=== PATIENT | female | born 1955 | race Caucasian/White ===

== ENCOUNTER 2020-09-18 13:12 | Outpatient (REF) | payer OTHER, SELFPAY | END 2020-09-18 13:13 | disposition home or self-care (01) | LOC: HO.LAB 13:12 | PROVIDERS: PCP Family Medicine; Visit Provider Internal Medicine | DX: Z20.828 Contact with and (suspected) exposure to other viral communicable diseases (principal) | CPT/HCPCS: 87635; C9803 ==

== ENCOUNTER 2020-09-19 10:59 | Outpatient (REF) | payer OTHER, SELFPAY ==
[2020-09-19 11:31] LABS: COVID-19 Test Negative (Negative)
== END 2020-09-19 11:00 | disposition home or self-care (01) ==
LOC: HO.EMPCOV 10:59
PROVIDERS: Visit Provider Internal Medicine
DX: Z20.828 Contact with and (suspected) exposure to other viral communicable diseases (principal)
CPT/HCPCS: 87635; C9803

== ENCOUNTER 2020-09-26 14:15 | Outpatient (REF) | payer OTHER, SELFPAY ==
--- NOTE | 2020-09-26 | MM_ITS ---
EXAMINATION: MM SCREENING DIGITAL BREAST TOMOSYNTHESIS, BILATERAL CLINICAL INFORMATION: Screening. Asymptomatic. The lifetime risk of breast cancer based on the Tyrer-Cuzick Model is 8%. COMPARISON: Mammography: 07/21/2018, 07/01/2017 TECHNIQUE: Digital breast tomosynthesis is performed in both the craniocaudal and mediolateral oblique views along with computer-aided detection (CAD). Synthesized 2D images are generated from the tomosynthesis. FINDINGS: The breasts are extremely dense, which lowers the sensitivity of mammography (ACR BI-RADS breast composition Category d). Breast tissue composition borders on heterogeneously dense. The left breast shows no interval mass or architectural abnormality. There are no abnormal calcifications in either breast. The axilla and skin contours are unremarkable. The right MLO tomography shows increased parenchymal attenuation upper quadrant 4 cm from nipple without correlate on CC view. This may be related to incompletely compressed glandular tissue and/or summation artifact. Patient will be recalled to fully characterize. MM/MM tomosynthesis screening BI IMPRESSION: 1. Right: Asymmetric density upper right breast on MLO tomography, possibly incompletely compressed glandular tissue and/or summation artifact. 2.Left: No mammographic evidence of malignancy. ASSESSMENT: BI-RADS 0: Incomplete - Need Additional Imaging Evaluation RECOMMENDATION: 1. Additional views of the right breast (3-D spot MLO, 3-D ML). 2. Targeted ultrasound if warranted after review of the additional views. 3. Radiology department staff will contact the patient for additional imaging. This patient's information was entered into a reminder system with a target due date for their next mammogram.
== END 2020-09-26 14:16 | disposition home or self-care (01) ==
LOC: HO.MAMMO 14:15
PROVIDERS: Visit Provider Family Medicine
DX: Z12.31 Encounter for screening mammogram for malignant neoplasm of breast (principal)
CPT/HCPCS: 77063; 77067

== ENCOUNTER 2020-10-11 13:45 | Outpatient (REF) | payer OTHER, SELFPAY ==
[2020-10-11 14:11] LABS: COVID-19 Test Negative (Negative); IDNOW Serial# 55D5AD1C
== END 2020-10-11 13:46 | disposition home or self-care (01) ==
LOC: HO.LAB 13:45
PROVIDERS: Visit Provider Internal Medicine
DX: Z20.828 Contact with and (suspected) exposure to other viral communicable diseases (principal)
CPT/HCPCS: 87635; C9803

== ENCOUNTER 2020-10-16 13:31 | Outpatient (REF) | payer OTHER, SELFPAY ==
[2020-10-16 14:16] LABS: COVID-19 Test Negative (Negative); IDNOW Serial# 55D5AD1C
== END 2020-10-16 13:32 | disposition home or self-care (01) ==
LOC: HO.EMPCOV 13:31
PROVIDERS: Visit Provider Internal Medicine
DX: Z20.828 Contact with and (suspected) exposure to other viral communicable diseases (principal)
CPT/HCPCS: 87635; C9803

== ENCOUNTER 2020-10-17 14:49 | Outpatient (REF) | payer OTHER, SELFPAY ==
--- NOTE | 2020-10-17 14:55 | MM_ITS ---
EXAMINATION: MM DIAGNOSTIC DIGITAL BREAST TOMOSYNTHESIS, RIGHT CLINICAL INFORMATION: Recall from screening for increased parenchymal attenuation upper breast without CC correlate, possibly summation artifact or incompletely compressed glandular tissue. COMPARISON: Mammography: 09/26/2020, 07/21/2018, 07/01/2017 TECHNIQUE: Digital breast tomosynthesis is performed. 2D images are generated from the tomosynthesis. The following views are obtained: 3-D spot MLO, 3-D ML. FINDINGS: The breasts are extremely dense, which lowers the sensitivity of mammography (ACR BI-RADS breast composition Category d). The additional views show no focal increased parenchymal density, mass, or architectural abnormality. Parenchymal pattern appears similar to prior studies. Results are discussed with the patient at time of visit. MM/MM tomosynthesis added views R IMPRESSION: Additional views show no persistent increased parenchymal attenuation. ASSESSMENT: BI-RADS 2: Benign RECOMMENDATION: Routine annual mammography screening. This patient's information was entered into a reminder system with a target due date for their next mammogram.
== END 2020-10-17 14:50 | disposition home or self-care (01) ==
LOC: HO.MAMMO 14:49
PROVIDERS: PCP Family Medicine; Visit Provider Nurse Practitioner Adult Health
DX: R92.2 Inconclusive mammogram (principal)
CPT/HCPCS: 77061; 77065

== ENCOUNTER 2020-11-03 13:51 | Outpatient (REF) | payer OTHER, SELFPAY ==
[2020-11-03 14:13] LABS: COVID-19 Test Negative (Negative)
== END 2020-11-03 13:52 | disposition home or self-care (01) ==
LOC: HO.EMPCOV 13:51
PROVIDERS: Visit Provider Internal Medicine
DX: Z20.822 Contact with and (suspected) exposure to COVID-19 (principal)
CPT/HCPCS: 36415; 87635; C9803

== ENCOUNTER 2020-12-14 13:20 | Outpatient (REF) | payer OTHER, SELFPAY ==
[2020-12-14 13:41] LABS: COVID-19 Test Negative (Negative)
== END 2020-12-14 13:21 | disposition home or self-care (01) ==
LOC: HO.EMPCOV 13:20
PROVIDERS: Visit Provider Internal Medicine
DX: Z20.822 Contact with and (suspected) exposure to COVID-19 (principal)
CPT/HCPCS: 36415; 87635; C9803

== ENCOUNTER 2021-05-01 08:05 | Outpatient (REF) | payer OTHER, SELFPAY ==
--- NOTE | ~2021-05-01 | XR_ITS ---
EXAMINATION: XR KNEE, RIGHT XR KNEE, LEFT CLINICAL INFORMATION: Pain in the right knee COMPARISON: X-ray of the right and left knee February 2018 TECHNIQUE: AP upright of the right and left knee. Patella and lateral view of the right knee FINDINGS: Right Knee: Medial Compartment: Joint space narrowing with marginal osteophytes indicative of moderate osteoarthritis. Lateral Compartment: Slightly widened likely related to the narrowed medial compartment. Marginal osteophytes indicative of at least mild arthrosis. Patellofemoral Compartment: Unremarkable. No effusion. Surrounding bone and soft tissues unremarkable. Left Knee (limited AP upright): Medial and lateral compartments and surrounding bone and soft tissues are normal. XR/XR knee RT 2V IMPRESSION: Right Knee: Osteoarthritis with degenerative changes most prominent in the medial compartment being moderate and new compared to prior x-ray in 2018. Left Knee Limited Exam: Normal.
--- NOTE | ~2021-05-01 | XR_ITS ---
EXAMINATION: XR KNEE, RIGHT XR KNEE, LEFT CLINICAL INFORMATION: Pain in the right knee COMPARISON: X-ray of the right and left knee February 2018 TECHNIQUE: AP upright of the right and left knee. Patella and lateral view of the right knee FINDINGS: Right Knee: Medial Compartment: Joint space narrowing with marginal osteophytes indicative of moderate osteoarthritis. Lateral Compartment: Slightly widened likely related to the narrowed medial compartment. Marginal osteophytes indicative of at least mild arthrosis. Patellofemoral Compartment: Unremarkable. No effusion. Surrounding bone and soft tissues unremarkable. Left Knee (limited AP upright): Medial and lateral compartments and surrounding bone and soft tissues are normal. XR/XR knee standing BI IMPRESSION: Right Knee: Osteoarthritis with degenerative changes most prominent in the medial compartment being moderate and new compared to prior x-ray in 2018. Left Knee Limited Exam: Normal.
== END 2021-05-01 08:06 | disposition home or self-care (01) ==
LOC: HO.HOSX 08:05
PROVIDERS: Visit Provider Orthopaedic Surgery
DX: M17.11 Unilateral primary osteoarthritis, right knee (principal)
CPT/HCPCS: 73560; 73565; 99202

== ENCOUNTER 2022-09-26 14:40 | Outpatient (REF) | payer OTHER, SELFPAY ==
--- NOTE | ~2022-09-26 | MM_ITS ---
EXAMINATION: MM SCREENING DIGITAL BREAST TOMOSYNTHESIS, BILATERAL CLINICAL INFORMATION: Screening. Asymptomatic. The lifetime risk of breast cancer based on the Tyrer-Cuzick Model is 7.5%. COMPARISON: Mammography: October 17, 2020 and studies dating back to April 09, 2016 TECHNIQUE: Digital breast tomosynthesis is performed in both the craniocaudal and mediolateral oblique views along with computer-aided detection (CAD). Synthesized 2D images are generated from the tomosynthesis. FINDINGS: The breasts are extremely dense, which lowers the sensitivity of mammography (ACR BI-RADS breast composition Category d). There are no significant masses, abnormal calcifications, or other abnormalities. MM/MM tomosynthesis screening BI IMPRESSION: No significant changes from prior exam. ASSESSMENT: BI-RADS 1: Negative RECOMMENDATION: Routine annual mammography screening. This patient's information was entered into a reminder system with a target due date for their next mammogram.
--- NOTE | ~2022-09-26 | MM_ITS ---
EXAMINATION: BONE DENSITOMETRY CLINICAL INDICATION: Menopause. COMPARISON: Previous BD dated 04/09/2016 and baseline BD dated 07/08/2013. TECHNIQUE: Using a miCab DXA System (software version: 13.1) manufactured by [employer], dual-energy x-ray absorptiometry was performed of the lumbar spine and left hip. The images are of good technical quality. Summary results are attached. FINDINGS: AP SPINE L1-L4: Current: BMD 0.816 g/cm2, Z-score -1.0, T-score -3.0, osteoporosis, 0.2% decrease from previous, 7.6% decrease from baseline (<5% change is not significant). Prior: BMD 0.818 g/cm2. Baseline: BMD 0.883 g/cm2. LEFT FEMUR, NECK: Current: BMD 0.885 g/cm2, Z-score 0.7, T-score -1.1, osteopenia. Prior: BMD 0.951 g/cm2. Baseline: BMD 0.969 g/cm2. LEFT FEMUR, TOTAL: Current: BMD 0.929 g/cm2, Z-score 0.9, T-score -0.6, normal, 1.2% decrease from previous, 4.8% decrease from baseline (<5% change is not significant). Prior: BMD 0.940 g/cm2. Baseline: BMD 0.976 g/cm2. IDENTIFIED RISK FACTORS: Height loss, osteoporosis, menopause. HISTORY OF FRACTURE: Foot. MEDICATIONS: Calcium supplements or multivitamin, vitamin D. MM/XR DEXA axial skeleton IMPRESSION: 1. DIAGNOSIS: Osteoporosis based on the lowest T-score value of -3.0 in the lumbar spine applying World Health Organization criteria. 2. 10-YEAR FRACTURE RISK PREDICTION, FRAX: According to the guidelines, FRAX calculation should only be performed on patients in the osteopenia bone density category. Therefore, FRAX was not performed on this patient. 3. Treatment Recommendations: NOF guidelines recommend consideration for treatment in postmenopausal women and men age 50 and older presenting with the following: -A hip or vertebral (clinical or morphometric) fracture. -T-score less than or equal to -2.5 at the femoral neck or spine after appropriate evaluation to exclude secondary causes. -Low bone mass at the hip or spine and a 10-year fracture probability by FRAX of greater than or equal to 3% for hip fracture or greater than or equal to 20% for major osteoporotic fracture based on the [place] adapted WHO algorithm. 4. Other Recommendations: All treatment decisions require clinical judgment and consideration of individual patient factors, including patient preferences, comorbidities, previous drug use, risk factors not captured in the FRAX model (e.g. frailty, falls, vitamin D deficiency, increased bone turnover, interval significant decline in bone density) and possible under or overestimation of fracture risk by FRAX. Additional medical evaluation for secondary cause of low bone mineral density may be appropriate. FUTURE SCAN RECOMMENDATION: People with diagnosed cases of osteoporosis or at high risk for fracture should have regular bone mineral density tests. For patients eligible for Medicare, routine testing is allowed once every 2 years. The testing frequency can be increased to one year for patients who have rapidly progressing disease, those who are receiving or discontinuing medical therapy to restore bone mass, or have additional risk factors.
== END 2022-09-26 14:41 | disposition home or self-care (01) ==
LOC: HO.MAMMO 14:40
PROVIDERS: PCP Internal Medicine; Visit Provider Nurse Practitioner Adult Health
DX: Z12.31 Encounter for screening mammogram for malignant neoplasm of breast (principal); Z13.820 Encounter for screening for osteoporosis; N95.1 Menopausal and female climacteric states
CPT/HCPCS: 77063; 77067; 77080

== ENCOUNTER 2022-10-29 09:36 | Outpatient (REF) | payer OTHER, SELFPAY ==
[2022-10-29 13:45] LABS: MANUAL DIFF FLAG NO
[2022-10-29 13:53] LABS: Basophils Absolute Auto 0.1 X10*3/uL (0.0-0.2); Basophils Percent Auto 1.3 % (0-2); Eosinophils Absolute Auto 0.3 X10*3/uL (0.0-0.4); Eosinophils Percent Auto 6.9 % (0-4); Hematocrit 42.1 % (37.0-47.0); Imm Gran Abs Auto 0.01 X10*3/uL (0.00-0.03); Imm Gran Pct Auto 0.2 % (0.0-0.4); Lymphocytes Percent Auto 42.6 % (20-40); Mean Corpuscular HGB Conc 33.3 g/dl (31.0-35.0); Mean Corpuscular Hemoglobin 31.5 pg (27.0-33.0); Mean Corpuscular Volume 94.6 fL (80.0-98.0); Mean Platelet Volume 10.1 fL (9.4-12.3); Monocytes Absolute Auto 0.5 X10*3/uL (0.1-1.2); Monocytes Percent Auto 9.7 % (2-11); Neutrophils Absolute Auto 1.8 x10*3/uL (2.0-8.3); Neutrophils Percent Auto 39.3 % (45-73); Platelet Count 336 X10*3/uL (160-400); Red Blood Count 4.45 X10*6/uL (4.20-5.50); Red Cell Distribution Width 11.8 % (11.0-16.0); White Blood Count 4.7 X10*3/uL (4.8-10.8)
[2022-10-29 14:08] LABS: Alanine Aminotransferase 15 U/L (0-31); Albumin Level 4.2 g/dL (3.5-5.0); Alkaline Phosphatase 56 U/L (39-117); Anion Gap 11 (12-20); Aspartate Amino Transferase 17 U/L (5-31); Bilirubin Total 0.4 mg/dL (0.0-1.0); Blood Urea Nitrogen 13 mg/dL (9-16); Calcium 9.1 mg/dL (8.4-10.2); Carbon Dioxide 27 mmol/L (22-29); Chloride 107 mmol/L (96-108); Cholesterol 309 mg/dL; Estimated Glomerular Filt Rate > 60; Glucose Fasting 83 mg/dL (60-99); HDL Cholesterol 83 mg/dL; LDL Cholesterol Calculated 211 mg/dl; Potassium 4.6 mmol/L (3.3-5.1); Sodium 140 mmol/L (135-145); Total Protein 6.7 g/dL (6.5-8.0); Triglycerides 75 mg/dL
== END 2022-10-29 09:37 | disposition home or self-care (01) ==
LOC: HO.10HDL 09:36
PROVIDERS: Visit Provider Physician Assistant
DX: Z00.00 Encounter for general adult medical examination without abnormal findings (principal)
CPT/HCPCS: 36415; 80053; 80061; 85025

== ENCOUNTER 2024-06-09 14:21 | Outpatient (REF) | payer OTHER, SELFPAY | END 2024-06-09 14:22 | disposition home or self-care (01) | LOC: HO.MAMMO 14:21 | PROVIDERS: PCP Internal Medicine; Visit Provider Physician Assistant | DX: Z12.31 Encounter for screening mammogram for malignant neoplasm of breast (principal) | CPT/HCPCS: 77063; 77067 ==

== ENCOUNTER → 2024-06-09 14:30 | Outpatient (BNV) | payer OTHER, SELFPAY | PROVIDERS: PCP Internal Medicine; Visit Provider Radiology Diagnostic Radiology | DX: Z12.31 Encounter for screening mammogram for malignant neoplasm of breast (principal) | CPT/HCPCS: 77063; 77067 ==

== ENCOUNTER 2024-08-17 11:09 | Outpatient (AMB) | payer OTHER, SELFPAY ==
--- NOTE | 2024-08-17 11:10 | A.OFFVIS_ITS ---
Vital Signs 08/17/24 11:11 Height 4 ft 1 in Weight 119 lb 7.849 oz BMI 35.0 BP 116/78 Blood Pressure Location Rt brachial Position Sitting Pulse 62 Intake Visit Reasons: Colonoscopy Screening Intake Note: Karma presents as a new patient for colonoscopy screening. CC: Last colonoscopy on [address] Alexis. Patient denies having any GI symptoms or concerns today. Staff Nurse Anesthetist Required: No Accompanied by: Self / Same As Patient Allergies shrimp Allergy (Intermediate, Verified 08/17/24 11:24) HIVES HPI HPI Colonoscopy Screening: Details: 68-year-old female here for preprocedural meeting to discuss a screening colonoscopy. She is referred by [facility] in [place] PMX Eczema TUBULAR ADENOMA * SURGICAL HISTORY Colonoscopy -2016= Vanesa MACIAS Bunion surgery * ALLERGIES:NKDA Shrimp * Frankly [employer] LABS: none TODAY'S VISIT She had a prior scope in 2019 with a Vanesa MACIAS. sHE WOULD PREFER DR. PATEL. She has had a change in her bowel habits, she used to have one daily BM, but now she has multiple daily BM's with tenesmus. She eats a lot of fresh fruits and eats salads and whole grains and drinks water. She tried metamucil and it helped a bit. I encourage her to continue this. NO abd pain, stools are formed w/o any change in consistency, no rectal bleeding, no N/V. She can not ID any new medications, diet change, or new health problems that preceded this. She does admit to being under lot of stress in trying to make a decision not she should retire. She denies any cardiac or respiratory problem There are no prior problems with anesthesia or sedation. NO ID problems She elects to try the treatment with senna and follow-up after the colonoscopy. If she has any other questions or concerns she will contact me earlier. 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 Review of Systems Const Denies fatigue, Denies fever(s), Denies night sweats, Denies poor appetite and Denies weight loss Eyes Details: glasses Reports requires corrective lenses ENT Reports Normal hearing present, Denies dental pain, Denies dysphagia, Denies hearing loss, Denies mouth pain, Denies odynophagia, Denies throat swelling, Denies tongue swelling and Reports other (Dentition adequate) Card Reports no additional complaints Resp Reports no additional complaints GI Details: change in bowel habits incomplete evacuation Denies abdominal pain, Denies melena, Denies bloating, Denies hematochezia, Denies constipation, Denies GI cramping, Denies dysphagia, Denies excessive flatus, Denies early satiety, Denies heartburn, Denies diarrhea, Denies nausea, Denies odynophagia, Denies vomiting and Denies hematemesis Skin/Breast Denies pruritus, Denies lesions, Denies rash and Denies jaundice Neuro Reports Normal hearing present and Denies Abnormal speech present Psych Reports anxiety Endo Denies fatigue Aller/Immun Denies throat swelling and Denies tongue swelling Physical Exam Const General: cooperative, no acute distress, well developed and well groomed Nutritional Appearance: average body habitus and well nourished Orientation/consciousness: oriented to person, oriented to place and oriented to time Limitations: No language barrier HEENT Head: Yes normocephalic and Yes atraumatic Eyes General: appearance normal, both eyes and all related structures Pupils: Equal, round and reactive pupils present Neck Neck: Yes normal visual inspection and Yes no lymphadenopathy Thyroid: Thyroid normal Resp Effort & Inspection: normal respiratory effort and able to speak in complete sentences Auscultation: clear to auscultation bilaterally Cardio Rate: regular rate Rhythm: regular rhythm Heart sounds: Normal, physiologic split S2 sound present Peripheral pulses: radial pulses present and posterior tibial pulses present GI Inspection: No distended and No Abdominal panniculus present Palpation (GI): Soft to palpation, nontender, no guarding, not rigid and No hepatosplenomegaly present Percussion: Yes normal to percussion Auscultation: normal bowel sounds Rectal Exam - Female: deferred Skin General skin exam: no rashes or lesions noted, turgor normal, skin not dry, no jaundice, No spider nevi and no striae Rashes: no rashes Nails: normal Neuro General: oriented to person, oriented to place and oriented to time Cranial nerves: Yes Equal, round and reactive pupils present and Yes Normal hearing present Speech: No Abnormal speech present Extrem General: Yes normal to inspection, No clubbing, No cyanosis and No edema Psych Appearance: grossly normal and well kempt Mental Status: mental status grossly normal Speech and movement: Normal speech and movement present Affect: normal affect Attitude: cooperative Thought process: Normal thought process present and not confabulating Thought content: Normal thought content present Insight: Fair insight present (Psych) Judgement: Fair judgement present (Psych) Assessment & Plan Assessment & Plan (1) Pre-op examination: Code(s): Z01.818 - Encounter for other preprocedural examination Category: Medical (2) Tubular adenoma of colon: Comment: Vanesa Santos= GILBERTO repeat in 5 years Code(s): D12.6 - Benign neoplasm of colon, unspecified Category: Medical Plan She had a prior scope in 2019 with a Vanesa MACIAS. sHE WOULD PREFER DR. PATEL. She has had a change in her bowel habits, she used to have one daily BM, but now she has multiple daily BM's with tenesmus. She eats a lot of fresh fruits and eats salads and whole grains and drinks water. She tried metamucil and it helped a bit. I encourage her to continue this. NO abd pain, stools are formed w/o any change in consistency, no rectal bleeding, no N/V. She can not ID any new medications, diet change, or new health problems that preceded this. She does admit to being under lot of stress in trying to make a decision not she should retire. She denies any cardiac or respiratory problem There are no prior problems with anesthesia or sedation. NO ID problems She elects to try the treatment with senna and follow-up after the colonoscopy. If she has any other questions or concerns she will contact me earlier. Coding Level of Care Code New Pt Level 3 (54324) Diagnoses Pre-op examination Z01.818 Tubular adenoma of colon D12.6
[2024-08-17 11:11] VITALS: BP 116/78; PULSE 62; BMI 35.0
== END 2024-08-17 11:45 | disposition home or self-care (01) ==
PROVIDERS: PCP Internal Medicine; Visit Provider Nurse Practitioner
DX: Z01.818 Encounter for other preprocedural examination (principal); Z12.11 Encounter for screening for malignant neoplasm of colon; Z86.0100 Personal history of colon polyps, unspecified
CPT/HCPCS: S0285

== ENCOUNTER → 2024-08-17 11:09 | Outpatient (BNVA) | payer OTHER, SELFPAY | PROVIDERS: PCP Internal Medicine; Visit Provider Nurse Practitioner ==

== ENCOUNTER 2024-12-31 09:03 | Outpatient (REF) | payer OTHER, SELFPAY ==
--- OUTSIDE RECORDS SUMMARY | 2024-12-31 09:45 | XMS_ITS | Patient Health Record ---
Author Organization [facility] Address [address] [facility] [place] [address] Care Team Providers Care Echocardiography Technologist Name Role Phone Antonio Haji MD Primary Care Provider Jorden Ortega Unavailable [phone] Allergies Allergen (clinical drug ingredient) Drug/Non Drug [...] Status Risk Notes Problem Pain in limb (29211849) Pain in unspecified toe(s) (M79.676) Active confirmed Problem Acquired hammer toe of left foot ([id number]) Other hammer toe(s) (acquired), left foot (M20.42) Active confirmed Problem [id number] Arthritis of right ankle (M19.071) Active confirmed [...] X ray : Foot, right 3V 09/30/2023 84030, J0702- INJECT or DRAIN, JOINT/BUR SA 10/07/2023 [id number], Toes 06/19/2020 [id number], Toes 05/24/2020 X ray : Ankle, right 3V 09/30/2023 Insurance Providers Payer Name Payer Address Payer Phone Subscriber Number Group Number Insured Name Patient Relationship to Insured Coverage Start Date Coverage End Date Blue Benefits [address] [address] [place] [address] [phone] [id number] Collado, Karma Self - patient is the insured Medical (General) History Medical History History ICD Code mumps headaches/migraines back, hip, knee pain chicken pox Osteoporosis Broken bones Measles Chicken pox Psoriasis/eczema Surgical History Surgery Date(Month/Year) nose surgery 06/2015 [place] R, dislocated sesamoid 06/27/16 bunion surgery HT L2nd, Dislocated L2nd MTPJ 04/27/2020 Hospitalization History Reason Date(Month/Year) [facility] [place]union right foot 06/27/16
--- OUTSIDE RECORDS SUMMARY | 2024-12-31 09:46 | XMS_ITS ---
Author Organization [facility] Address [address] [place] [address] Care Team Providers Care Territory Sales Consultant Name Role Phone Antonio Haji MD Primary Care Provider Jorden Ortega [phone] REASON FOR VISIT Foot pain Encounters Encounter Location Date Provider Diagnosis [facility] [address] [place] [address] 10/07/2023 Jorden Gregory Plan Of Treatment No Information Progress Notes * Moe COLLADOUliB:1955 (67 yo F)Acc No.[id number]:10/07/2023 Patient:?Karma Collado :1955???Age:67 Y???Sex:Female Address:[address] [place], [address] * true * Date:? Generated for Printi jluis/Lito/eTransmitting on:?12/31/2024 09:45 AM EST
--- OUTSIDE RECORDS SUMMARY | 2024-12-31 09:46 | XMS_ITS | Clinical Summary ---
Author Organization [facility] Address [address] [place] [address] Care Team Providers Care Reserves Clerk Name Role Phone Antonio Haji DO Primary Care Provider [phone] Surgical History Surgery Date Site/Laterality Comments COLONOSCOPY [...] age to complete this topic Care Teams Reserves Clerk Relationship Specialty Start Date End Date Antonio Haji DO [address] [facility] [address] [place], [place] PCP - General Internal Medicine 09/13/21
--- OUTSIDE RECORDS SUMMARY | 2024-12-31 09:46 | XMS_ITS | Data Portability ---
Author Organization [facility] Address [address] [place] [address] Assessment No assessment recorded. Plan of Treatment Reminders Order Date Submit Date Provider Last Modified By Organization Details Last Modified Time Details Appointments ANNUA L EXAM 2024 10:30A M EDEN MANN Not available Not available Not available Lab CBC w/ auto diff 2023 024 [facility], [address] [place] [address], [id number], 07/20/2024 15:46:16 CMP, serum or plasm a 2023 024 [facility], [address] [place] [address], [id number], 07/20/2024 15:46:16 lipid panel , blood 2023 024 [facility], [address] [place] [address], [id number], 07/20/2024 15:46:16 CMP, serum or plasm a 2021 022 [facility], [address] [place] [address], [id number], 03/29/2022 10:30:44 CBC w/ auto diff 2021 022 [facility], [address] [place] [address], [id number], 03/29/2022 10:30:44 lipid panel , blood 2021 022 [facility], [address] [facility], [place], [address], 03/29/2022 10:30:43 Referral gastr london stewart ist refer ral - has been seen previ ously with Dr. Luis Alfredo lama 2023 024 [facility], [address] [place] [address] Dr, [facility], [place]EL [place], [address], 05/21/2024 09:17:39 Procedures None recor ded. Surgeries None recor ded. Imaging MAMMO sweta, digit al, bilat eral 2023 024 [facility], [address] [place] [address] [place], [address], 06/02/2024 08:19:33 Medication Orders triam cinol one aceto nide 0.1 % topic al cream 2021 022 [id number], [address] [place], [place], [id number], 03/29/2022 10:19:48 Patient TargetsNo targets recorded. Patient InstructionsNo instructions recorded. 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 Molina Referring Physician: Paola Parikh, Internal Medicine, Encounter Date: 05/19/2024 Results Created Date Observation Date Name Description Value Unit Range Abnormal Flag Note LastModifiedBy Organization Detail LastModifiedTime 10/01/2009/26/2022 bone densi ty No observ ation record ed. [facility] Dental Assistant Instructor Group [facility] - [address], [place], [address], 10/01/2022 14:28:38 06/11/20 24 06/09/2024 MAMMO sweta, digit al, bilat eral No observ ation record ed. [address] [place], [address], 07/20/2024 15:35:40 Result Notes None recorded. Problems Name Problem SNOMED Code Status Onset Date Resolution Date Notes Provider Name and Address Organization Details Recorded Time Eczema 56470904 Active 022 EDEN MANN [address] [place], [address], [facility] 10:18:30 Problem Notes None recorded. Procedures Surgical History Date Name Laterality Status Provider Name and Address Organization Details Recorded Time 10/30/19 21 Date of Last Pap Smear completed Xiomara Squires [facility] 04/01/2022 11:50:28 10/30/19 21 Most Recent Mammogram completed Xiomara Squires [facility] 04/01/2022 11:51:08 excision of bunion completed EDEN MANN [address] [place], [address], [facility] 03/29/2022 10:14:03 Imaging Results Imaging Date Name Status LastModified by [facility] Details LastModified Time 09/26/2022 bone density completed [facility] 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 - [address], [place], [address], 10/01/2022 14:28:38 06/09/2024 MAMMO, screening, digital, bilateral completed [address] [place], [address], 07/20/2024 15:35:40 Procedure Notes None recorded. Medical Equipment None Reported. Allergies Allergen ID Allergen Name Allergen Category Reaction Reaction Severity Criticality Documentation Date Start Date Code Code System Note Provider Name and Address Organization Details Recorded Time 5766 shrimp allergeni c extract food hives moderate Not available 03/29/2022 57311 2 [facility] 09:50:20 Medications Name Sig Start Date [...] Address Organization Details Last Updated DateTime 2 99601.9 2 g 23.3 kg/m2 149.86 cm 99 % 99 % 62 /min 118 mm[Hg] 70 mm[Hg] Xiomara Squires [facility] 2 09:51:55 Date Recorded Body height Body mass index (BMI) Body weight Heart rate Oxygen saturation Oxygen saturation in Arterial blood by Pulse oximetry Systolic blood pressure Diastolic blood pressure Provider Name and Address Organization Details Last Updated DateTime 4 149.86 cm 24.2 kg/m2 10461.7 3 g 70 /min 98 % 98 % 118 mm[Hg] 70 mm[Hg] Jose Orlando [facility] 4 09:13:41 Date Recorded Body height Body mass index (BMI) Body weight Heart rate Oxygen saturation Oxygen saturation in Arterial blood by Pulse oximetry Systolic blood pressure Diastolic blood pressure Provider Name and Address Organization Details Last Updated DateTime 4 149.86 cm 23.9 kg/m2 88974.7 g 67 /min 98 % 98 % 114 mm[Hg] 74 mm[Hg] Doris Fox [facility] 4 15:23:34 Social History Question Answer Notes LastModified by Organizat ion Details LastModified Time Tobacco Smoking Status Never Smoker Xiomara mcdaniel [facility] 03/29/2022 09:47:11 What Is Your [...] 50 mcg/0.25mL dose 12/09/2020 completed Xiomara mcdaniel [facility] 03/27/2022 08:22:38 COVID-19, mRNA, LNP-S, PF, 100 mcg/0.5mL dose or 50 mcg/0.25mL dose 01/19/2021 completed Xiomara mcdaniel [facility] 03/27/2022 08:22:46 COVID-19, mRNA, LNP-S, PF, 100 mcg/0.5mL dose or 50 mcg/0.25mL dose 10/23/2021 completed Xiomara mcdaniel [facility] 03/27/2022 08:22:53 zoster, unspecified formulation 12/03/2019 completed Xiomara mcdaniel [facility] 03/27/2022 08:23:12 zoster, unspecified formulation 06/02/2020 completed Xiomara mcdaniel [facility] 03/27/2022 08:23:21 MMR 09/26/2016 completed Xiomara mcdaniel [facility] 03/27/2022 08:23:34 Td(adult) unspecified formulation 12/14/2013 completed Xiomara Squires violeta [facility] 03/27/2022 08:23:48 Past Encounters Encounter ID Performer Location Encounter Start Date Encounter Closed Date Diagnosis/Indication Diagnosis SNOMED-CT Code Diagnosis ICD10 Code Diagnosis Note [id number] EDEN MANN [facility] [address] [facility] [address] 03/29/2022 09:34:21 03/29/2022 16:23:15 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 817670726 Z00.00 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 performedB P is excellent Eczema 05122467 L30.9 will trial steriod cream for itchy patches on her skin [id number] EDEN MANN [facility] [address] [facility] [address] [place] [employer] [place] [address] 05/19/2024 09:06:00 05/21/2024 09:17:38 Depression screening 043296372 Z13.31 negative Screening colonoscopy 44 9123228 Z12.11 agreed to referral Screening mammography 24 333141 Z12.31 will set up with screening MM [id number] EDEN MANN [facility] [address] [facility] | [facility] [address] 07/20/2024 15:05:17 07/20/2024 15:59:46 Active or passive immunization 369103991 Z23 advised Adult heal th examination 387618632 Z00.00 BP is excellent Health Concerns Section Related Observation LastModified by Organization Detai ls LastModified Time None Recorded Concern Status LastModified by Organization Details LastModified Time None Recorded Advance Directives Directive None Recorded Payers Encounter Date Sequence Insurance Name Policy Number Policy Tapia Covered Member ID Tapia Member ID Guarantor Name 03/29/2022 1 [employer] [id number] Karma Collado [id number] Karma Collado 05/19/2024 1 [employer] [id number] Karma Collado [id number] Karma Collado 07/20/2024 1 [place] [id number] Karma Collado [id number] Karma Collado Notes Date Note Type [...] physical questions and PE EDEN MANN [address] [place], [address], [facility] 03/29/2022 10:32:38 4 text/html f/u would like referral the patient reports she needs a colonoscopy, due every 5 years, last one was done in 2012 with [facility] Vanessa set up with referral the patient is having a bowel movement everyday but like pellets, hardhas been using metamucil which has seemed to helped a little with feeling more emptyis also producing mucus-like discharge as wellhad a polyp as well at last check which prompted the 5 year plan will set up with [facility] could also be worsened by the anxiety as well given how stressed she is at workneed to r/o any concerning changes from her colon as well needs screening MM EDEN MANN [address] [place], [address], [facility] 05/19/2024 09:37:13 4 text/html [...] appt was this past summer EDEN MANN [address] [place] [address], [address], [facility] 07/20/2024 15:57:07 OBGyn Episode No OBEpisode recorded."
--- OUTSIDE RECORDS SUMMARY | 2024-12-31 09:46 | XMS_ITS | Clinical Summary ---
Author Organization [facility] Address [address] [place] [address] Care Team Providers Care Emergency Vehicle Operator Name Role Phone Antonio Haji DO Primary Care Provider [phone] Allergies No known active allergies Medications No [...] age to complete this topic Care Teams Emergency Vehicle Operator Relationship Specialty Start Date End Date Antonio Haji DO [address] [place] [address] PCP - General Internal Medicine 09/13/21
--- OUTSIDE RECORDS SUMMARY | 2024-12-31 09:46 | XMS_ITS ---
Author Organization [facility] [place] Address [address] [facility] [place] [address] Care Team Providers Care Pattern And Chain Maker Name Role Phone Antonio Haji MD Primary Care Provider Jorden Ortega [phone] Allergies Allergen (clinical drug ingredient) Drug/Non Drug [...] N/A Encounters Encounter Location Date Provider Diagnosis [facility] [place] [address] [facility] [address] [place] [address] 10/07/2023 Jorden Gregory Pain in right foot [...] Notes * Nicol COLLADO:1955 (67 yo F)Acc No.[id number]:10/07/2023 Progress Note Patient:Karma Payne Provider:?Jorden Gregory DPM :1955???Age:67 Y???Sex:Female D ate:10/07/2023 Address:[address] [place] [address], [facility], [place]-[id number] Pcp:Antonio Haji MD Subjective: * Chief Complaints: [...] L2nd MTPJ 04/27/2020 * Hospitalization/Major Diagno stic Procedure:?[facility] Bunion right foot 06/27/16 * Family History:?Mother: [...] * Procedure Codes:?J0702 INJ B ETAMETHSN ACTAT&SOD [id number] DRAIN/INJECT, JOINT/BURSA, Modifiers: XS * Follow Up:?prn * Images: * Sign off status: Completed true * Provider:?Jorden Gregory DPM Date:? 023 Generated for Printi ng/Faguig/eTransmitting on:?12/31/2024 09:45 AM EST History and Physical Notes * HPI (History of Present Illness) Category Sub-Category Detail Notes Category Not es Foot Pain Aggrevated: any pressure, standing, walk ing, work Onset/Cause: unknown, denies trabeverley ma Course: worse, intermittent Duration: several weeks [...]
--- OUTSIDE RECORDS SUMMARY | 2024-12-31 09:46 | XMS_ITS ---
Author Organization [facility] Address [address] [facility] [place] [address] Care Team Providers Care Fishing Boat Captain Name Role Phone Adithya AVILEZ, Antonio Primary Care Provider Jorden Ortega [phone] REASON FOR VISIT Buy Lalo Abril [address]36 Encounters Encounter Location Date Provider Diagnosis [address] [address] 09/30/2023 Jorden Gregory Plan Of Treatment No Information Progress Notes * Moe COLLADOUliB:1955 (67 yo F)Acc No.[id number]:09/30/2023 Patient:?Karma Collado :1955???Age:67 Y???Sex:Female [address] [place], [address] * true * Date:? Generated for Evie bazzi/Lito/eTransmitting on:?12/31/2024 09:46 AM EST
[2024-12-31 09:57] LABS: MANUAL DIFF FLAG NO
[2024-12-31 10:23] LABS: Basophils Absolute Auto 0.1 X10*3/uL (0.0-0.2); Basophils Percent Auto 1.3 % (0-2); Eosinophils Absolute Auto 0.4 X10*3/uL (0.0-0.4); Eosinophils Percent Auto 7.8 % (0-4); Hematocrit 41.8 % (37.0-47.0); Hemoglobin 14.4 g/dl (12.0-16.0); Imm Gran Abs Auto 0.01 X10*3/uL (0.00-0.03); Imm Gran Pct Auto 0.2 % (0.0-0.4); Lymphocytes Percent Auto 45.4 % (20-40); Mean Corpuscular HGB Conc 34.4 g/dl (31.0-35.0); Mean Corpuscular Hemoglobin 31.6 pg (27.0-33.0); Mean Corpuscular Volume 91.9 fL (80.0-98.0); Mean Platelet Volume 9.7 fL (9.4-12.3); Monocytes Absolute Auto 0.4 X10*3/uL (0.1-1.2); Monocytes Percent Auto 9.6 % (2-11); Neutrophils Absolute Auto 1.6 x10*3/uL (2.0-8.3); Neutrophils Percent Auto 35.7 % (45-73); Platelet Count 250 X10*3/uL (160-400); Red Blood Count 4.55 X10*6/uL (4.20-5.50); Red Cell Distribution Width 11.9 % (11.0-16.0); White Blood Count 4.5 X10*3/uL (4.8-10.8)
[2024-12-31 10:53] LABS: Alanine Aminotransferase 20 U/L (0-31); Alkaline Phosphatase 60 U/L (39-117); Anion Gap 8 (12-20); Aspartate Amino Transferase 21 U/L (5-31); Bilirubin Total 0.5 mg/dL (0.0-1.0); Blood Urea Nitrogen 17 mg/dL (9-16); Carbon Dioxide 28 mmol/L (22-29); Chloride 108 mmol/L (96-108); Cholesterol 295 mg/dL (<200); Estimated Glomerular Filt Rate > 60; Glucose Random 93 mg/dL (60-115); HDL Cholesterol 77 mg/dL (>40); LDL Cholesterol Calculated 202 mg/dL (<100); Potassium 4.1 mmol/L (3.3-5.1); Sodium 140 mmol/L (135-145); Total Protein 7.1 g/dL (6.5-8.0); Triglycerides 83 mg/dL (<150)
== END 2024-12-31 09:04 | disposition home or self-care (01) ==
LOC: HO.10HDL 09:03
PROVIDERS: Visit Provider Physician Assistant
DX: Z00.00 Encounter for general adult medical examination without abnormal findings (principal); Z13.6 Encounter for screening for cardiovascular disorders
CPT/HCPCS: 36415; 80053; 80061; 85025

== ENCOUNTER 2025-01-24 07:13 | Day surgery (SDC) | payer OTHER, SELFPAY ==
--- OUTSIDE RECORDS SUMMARY | 2024-12-21 10:49 | XMS_ITS | Clinical Summary ---
[facility] [address] [place] [address] Care Team Providers Care Zipper Lining Folder Name Role Phone Antonio Haji DO Primary Care Provider [phone] Surgical History Surgery Date Site/Laterality Comments COLONOSCOPY 07/2013 PROCEDURE:COLONOSCOPY;COMMENT:Hype rplastic polyp, Tubular adenoma repeat 2017 Dr Reynaga BUNIONECTOMY 01/14/2008 Left PROCEDURE:BUNIONECTOMY;COMMENT:Dr Molina OTHER SURGICAL HISTORY PROCEDURE:Cryocautery of Cervix;COMMENT:age 30 yrs, Dysplasia cervix OTHER SURGICAL HISTORY 06/2015 PROCEDURE:Mohs surgery;COMMENT:nose COLONOSCOPY W/ BIOPSIES 11/18/2018 PROCEDURE:COLONOSCOPY W/ BIOPSIES;COMMENT:Tubular adenoma OTHER SURGICAL HISTORY 04/2020 PROCEDURE:hammertoe repair, left second toe Medical History Medical History Date Comments Insomnia DX:Insomnia Hypercholesteremia DX:Hyperchole steremia Migraine DX:Migraine Low back pain DX:Low back pain Anxiety DX:Anxiety Facial basal cell cancer 06/2015 DX:Faci al basal cell cancer;COMMENT:Dr Juan Zelaya Osteoporosis DX:Osteoporosis; COMMENT:DEXA: 06/2013: T-2.5 LSpine FRAX 5%/1%, 03/2016: T-3.0 LS FRAX 11%/1% Fosamax x 6 months Encounter for screening for cervical cancer DX:Encounter for screening f or cervical cancer;COMMENT:04/23/2016 neg/neg, 06/16/2018 Breast cancer screening by mammogram DX:Breast cancer screening by mammogram;COMMENT:04/09/2016, 07/21/2018 Negative Left knee pain DX:Left knee nish n;COMMENT:MRI-K Dr. Peacock Screening for colon cancer 07/2013 DX:Sc reening for colon cancer;COMMENT:07/2013: Hyperplastic polyp, Tubular adenoma, 10/2018 Tubular adenoma repeat 5 years Tubular adenoma of colon DX:Tubu lar adenoma of colon;COMMENT:10/2018 Vitamin D deficiency 12/07/2018 DX:Vitamin D deficiency Family History Medical History Relation Name Comments Arthritis Father Hypertension Father Stroke Maternal Grandmother Atrial fibrillation Mother Hypertension Mother Peripheral vascular disease Paternal Grandmother Relation Name Status Comments Father Alive Maternal Grandfather Maternal Grandmother Mother Alive Paternal Grandfather Paternal Grandmother Sister Alive Social History Tobacco Use Types Packs/Day Years Used Date Smoking Tobacco: Never Smokeless Tobacco: Never Alcohol Use Standard Drinks/Week Comments Yes 0 (1 standard drink = 0.6 oz pur e alcohol) Comments Unknown Sex and Gender Information Value Date Recorded Sex Assigned at Not on file Legal Sex Female 11:11 AM EST Gender Identity Not on file Sexual Orientation Not on file Obstetrics History Plan of Treatment Health Maintenance Due Date Last Done Comments Breast Cancer Screening 1955 DTaP,Tdap,and Td Vaccines (1 - Tdap) 1976 Pneumococcal Vaccine: 50+ Ye ars (1 of 1 - PCV) 2007 Zoster Vaccines (2 of 2) 07/28/2020 06/02/2020 COVID-19 Vaccine (1 - 2023-2 5 season) 2024 Influenza Vaccine (#1) 2024 RSV Immunization Patients 60 + Years Old (1 - 1-dose 75+ series) 2032 HIB Vaccines Aged Out No longer eligi ble based on patient's age to complete this topic HPV Vaccines Aged Out No longer eligi ble based on patient's age to complete this topic Hepatitis A Vaccines Aged Out No long er eligible based on patient's age to complete this topic Hepatitis B Vaccines Aged Out No long er eligible based on patient's age to complete this topic IPV Vaccines Aged Out No longer eligi ble based on patient's age to complete this topic MMR Vaccines Aged Out No longer eligi ble based on patient's age to complete this topic Meningococcal ACWY Vaccine Aged Out N o longer eligible based on patient's age to complete this topic Meningococcal B Vacine Aged Out No lo nger eligible based on patient's age to complete this topic RSV Immunization Patients Un fátima 20 months Aged Out No longer eligible b ased on patient's age to complete this topic Varicella Vaccines Aged Out No longer eligible based on patient's age to complete this topic Care Teams Zipper Lining Folder Relationship Specialty Start Date End Date Antonio Haji DO [address] [facility] [address] [place], [place] PCP - General Internal Medicine 09/13/21
--- OUTSIDE RECORDS SUMMARY | 2024-12-21 10:49 | XMS_ITS | Data Portability ---
Author Organization [facility] Address [address] [place] [address] Assessment No assessment recorded. Plan of Treatment Reminders Order Date Submit Date Provider Last Modified By Organization Details Last Modified Time Details Appointments ANNUA L EXAM 2024 10:30A M EDEN MANN Not available Not available Not available Lab CBC w/ auto diff 2023 024 [facility], [address] [place] [address], [id number], 07/20/2024 15:46:16 CMP, serum or plasm a 2023 024 [facility], [address] [place] [address], [id number], 07/20/2024 15:46:16 lipid panel , blood 2023 024 [facility], [address] [place] [address], [id number], 07/20/2024 15:46:16 CMP, serum or plasm a 2021 022 [facility], [address] [place] [address], [id number], 03/29/2022 10:30:44 CBC w/ auto diff 2021 022 [facility], [address] [place] [address], [id number], 03/29/2022 10:30:44 lipid panel , blood 2021 022 [facility], [address] [facility], [place], [address], 03/29/2022 10:30:43 Referral gastr london stewart ist refer ral - has been seen previ ously with Dr. Luis Alfredo lama [id number] [facility], [address] [place] [address] Dr, [facility], MICHAEL [place], [address], 05/21/2024 09:17:39 Procedures None recor ded. Surgeries None recor ded. Imaging MAMMO sweta, digit al, bilat eral 2023 024 [facility], [address] [place] [address] [place], [address], 06/02/2024 08:19:33 Medication Orders triam cinol one aceto nide 0.1 % topic al cream 2021 022 [id number], [address] [place], [place], [id number], 03/29/2022 10:19:48 Patient TargetsNo targets recorded. Patient InstructionsNo instructions recorded. 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 Molina Referring Physician: Paola Parikh, Internal Medicine, Encounter Date: 05/19/2024 Results Created Date Observation Date Name Description Value Unit Range Abnormal Flag Note LastModifiedBy Organization Detail LastModifiedTime 10/01/2009/26/2022 bone densi ty No observ ation record ed. [facility] - [address], [place], [address], 10/01/2022 14:28:38 06/11/20 24 06/09/2024 MAMMO sweta, digit al, bilat eral No observ ation record ed. [address] [place], [address], 07/20/2024 15:35:40 Result Notes None recorded. Problems Name Problem SNOMED Code Status Onset Date Resolution Date Notes Provider Name and Address Organization Details Recorded Time Eczema 32770711 Active 022 EDEN MANN [address] [place], [address], [facility] 10:18:30 Problem Notes None recorded. Procedures Surgical History Date Name Laterality Status Provider Name and Address Organization Details Recorded Time 10/30/19 21 Date of Last Pap Smear completed Xiomara Squires [facility] 04/01/2022 11:50:28 10/30/19 21 Most Recent Mammogram completed Xiomara Squires [facility] 04/01/2022 11:51:08 excision of bunion completed EDEN MANN [address] [place], [address], [facility] 03/29/2022 10:14:03 Imaging Results Imaging Date Name Status LastModified by Organiz atformerly [facility] Details LastModified Time 09/26/2022 bone density completed [facility] Custodian [facility] - [address], [place], [address], 10/01/2022 14:28:38 06/09/2024 MAMMO, screening, digital, bilateral completed [address] [place], [address], 07/20/2024 15:35:40 Procedure Notes None recorded. Medical Equipment None Reported. Allergies Allergen ID Allergen Name Allergen Category Reaction Reaction Severity Criticality Documentation Date Start Date Code Code System Note Provider Name and Address Organization Details Recorded Time 5766 shrimp allergeni c extract food hives moderate Not available 03/29/2022 73891 2 [facility] 09:50:20 Medications Name Sig Start Date Stop Date Status Note LastModified by Organization Details LastModified Time triamcinolone acetonide 0.1 % topical cream APPLY A THIN LAYER TO THE AFFECTED AREA(S) BY TOPICAL ROUTE 2 TIMES PER DAY 2021 active Not Available Not Available Not Avai lable Fish Oil TAKE ONE TABLET A DAY active Not Available Not Available No t Available Vitals Date Recorded Body weight Body mass index (BMI) Body height Oxygen saturation Oxygen saturation in Arterial blood by Pulse oximetry Heart rate Systolic blood pressure Diastolic blood pressure Provider Name and Address Organization Details Last Updated DateTime 2 52526.9 2 g 23.3 kg/m2 149.86 cm 99 % 99 % 62 /min 118 mm[Hg] 70 mm[Hg] Xiomara Squires [facility] 2 09:51:55 Date Recorded Body height Body mass index (BMI) Body weight Heart rate Oxygen saturation Oxygen saturation in Arterial blood by Pulse oximetry Systolic blood pressure Diastolic blood pressure Provider Name and Address Organization Details Last Updated DateTime 4 149.86 cm 24.2 kg/m2 49948.7 3 g 70 /min 98 % 98 % 118 mm[Hg] 70 mm[Hg] Jose Orlando [facility] 4 09:13:41 Date Recorded Body height Body mass index (BMI) Body weight Heart rate Oxygen saturation Oxygen saturation in Arterial blood by Pulse oximetry Systolic blood pressure Diastolic blood pressure Provider Name and Address Organization Details Last Updated DateTime 4 149.86 cm 23.9 kg/m2 66518.7 g 67 /min 98 % 98 % 114 mm[Hg] 74 mm[Hg] Doris Fox [facility] 4 15:23:34 Social History Question Answer Notes LastModified by Organizat ion Details LastModified Time Tobacco Smoking Status Never Smoker Xiomara mcdaniel [facility] 03/29/2022 09:47:11 What Is Your Level Of Alcohol Consumption? Occasional Less Than 3 Times Per Week Information not available 04/01/2022 What Is Your Level Of Caffeine Consumption? Moderate 2 Cups Per Day Information not available 04/01/2022 What Was The Date Of Your Most Recent Tobacco Screening? 07/20/2024 [email or web address] Information not available 07/20/2024 Do You Use Any Illicit Or Recreational Drugs? No Information not available 04/01/2022 Sex: Unknown Functional Status Question Answer Note LastModified by Organization D etails LastModified Time What is your exercise level? Heavy Information not available 04/01/2022 Mental Status None recorded. Family History Relationship Description Onset Age of this Age Resolved Age Notes LastModified by Organization Details LastModified Time Father Osteoarthrit is [email or web address] Not available 2021 10:11:30 Mother Osteoarthrit is rtryba Not available 2021 10:11:30 Paternal Grandfather Malignant tumor of lung rtryba Not available 2021 10:12:07 Medical History No medical history recorded. Gynecological History Statement/Question Response If Post Menopausal, Age at Menopause 50 Date of Last Pap Smear 10/30/2020 Most Recent Mammogram 10/30/2020 Obstetrics History GPAL:G 0 P 0 0 0 0 Immunizations Vaccine Type Date Status Note Provider Nam e and Address Organization Details Recorded Time COVID-19, mRNA, LNP-S, PF, 100 mcg/0.5mL dose or 50 mcg/0.25mL dose 12/09/2020 completed Xiomara mcdaniel [facility] 03/27/2022 08:22:38 COVID-19, mRNA, LNP-S, PF, 100 mcg/0.5mL dose or 50 mcg/0.25mL dose 01/19/2021 completed Xiomara mcdaniel [facility] 03/27/2022 08:22:46 COVID-19, mRNA, LNP-S, PF, 100 mcg/0.5mL dose or 50 mcg/0.25mL dose 10/23/2021 completed Xiomara mcdaniel [facility] 03/27/2022 08:22:53 zoster, unspecified formulation 12/03/2019 completed Xiomara mcdaniel [facility] 03/27/2022 08:23:12 zoster, unspecified formulation 06/02/2020 completed Xiomara mcdaniel [facility] 03/27/2022 08:23:21 MMR 09/26/2016 completed Xiomara mcdaniel [facility] 03/27/2022 08:23:34 Td(adult) unspecified formulation 12/14/2013 completed Xiomara Squires violeta [facility] 03/27/2022 08:23:48 Past Encounters Encounter ID Performer Location Encounter Start Date Encounter Closed Date Diagnosis/Indication Diagnosis SNOMED-CT Code Diagnosis ICD10 Code Diagnosis Note [id number] EDEN MANN [facility] [address] [facility] [address] 03/29/2022 09:34:21 03/29/2022 16:23:15 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 463832180 Z00.00 inpatient pharmacist exam performedB P is excellent Eczema 78079462 L30.9 will trial steriod cream for itchy patches on her skin [id number] EDEN MANN [facility] [address] [facility] [address] 05/19/2024 09:06:00 05/21/2024 09:17:38 Depression screening 181219885 Z13.31 negative Screening colonoscopy 44 5922770 Z12.11 agreed to referral Screening mammography 24 748682 Z12.31 will set up with screening MM [id number] EDEN MANN [facility] [address] [facility] [address] 07/20/2024 15:05:17 07/20/2024 15:59:46 Active or passive immunization 399084563 Z23 advised Adult heal th examination 315272335 Z00.00 BP is excellent Health Concerns Section Related Observation LastModified by Organization Detai ls LastModified Time None Recorded Concern Status LastModified by Organization Details LastModified Time None Recorded Advance Directives Directive None Recorded Payers Encounter Date Sequence Insurance Name Policy Number Policy Tapia Covered Member ID Tapia Member ID Guarantor Name 03/29/2022 1 [employer] [id number] Karma Collado [id number] Karma Collado 05/19/2024 1 [employer] [id number] Karma Collado [id number] Karma Collado 07/20/2024 1 [employer] [place] [id number] Karma Collado [id number] Karma Collado Notes Date Note Type Note Provider Name a nd Address Organization Details Recorded Time 2 text/html Annual WellnessReported bypatient.Diet and Nutrition:healthy diet Fracture Risk:no history of fractures; no recent explained fracture; no sudden unexplained fractures; no previous musculoskeletal injuries Physical Activity:exercises on a regular basis; recent increase in physical activity; good physical condition Additional Lifestyle Factors:no tobacco use; no alcohol intake; stopped drinking alcohol Depression Risk:never feels sad, empty, or tearful; no loss of interest in activities; no significant changes in weight; no sleep disturbances or insomnia; no agitation; no loss of energy; no feelings of worthlessness or guilt; no thoughts of suicide; no history of depression; no history of mood disorders Hearing:no loss of hearing Vision:no vision problems NPV allergies: moderate shrimp allergy problems: no current medical historyother hx documented in the chartdiscussed previous surgical hx vaccines: up to date vitals: excellent history: updated in the chart rest of the visit was used for routine physical questions and PE EDEN MANN [address] [place], [address], [facility] 03/29/2022 10:32:38 4 text/html f/u would like referral the patient reports she needs a colonoscopy, due every 5 years, last one was done in 2012 with [facility] Vanessa set up with referral the patient is having a bowel movement everyday but like pellets, hardhas been using metamucil which has seemed to helped a little with feeling more emptyis also producing mucus-like discharge as wellhad a polyp as well at last check which prompted the 5 year plan will set up with [facility] could also be worsened by the anxiety as well given how stressed she is at workneed to r/o any concerning changes from her colon as well needs screening MM EDEN MANN [address] [place], [address], [facility] 05/19/2024 09:37:13 4 text/html Annual WellnessReported bypatient.Diet and Nutrition:healthy diet; discussed vitamin and supplement use; discussed portion control; discussed maintaining calcium balance; discussed diet improvement Fracture Risk:no history of fractures; no recent explained fracture; no sudden unexplained fractures; no previous musculoskeletal injuries Physical Activity:exercises on a regular basis; recent increase in physical activity; good physical condition Additional Lifestyle Factors:no tobacco use; drinks alcohol (mild-moderate) Depression Risk:never feels sad, empty, or tearful; no loss of interest in activities; no significant changes in weight; no sleep disturbances or insomnia; no agitation; no loss of energy; no feelings of worthlessness or guilt; no thoughts of suicide; no history of depression; no history of mood disorders Hearing:no loss of hearing Vision:no vision problemsNotes:last dentist appt was this past summer EDEN MANN [address] [place] [address], [address], [facility] 07/20/2024 15:57:07 OBGyn Episode No OBEpisode recorded.
--- OUTSIDE RECORDS SUMMARY | 2024-12-21 10:49 | XMS_ITS | Clinical Summary ---
Author Organization [facility] Address [address] [place] [address] Care Team Providers Care Cable Installation Manager Name Role Phone Antonio Haji DO Primary Care Provider [phone] Allergies No known active allergies Medications No known medications Active Problems Problem Noted Date Diagnosed Date Hypercholesteremia 12/07/2018 Anxiety Osteoporosis Overview: DEXA: T-2.5, 03/2016: T-3.0 LS FRAX 11%/1% Resolved Problems Problem Noted Date Diagnosed Date Resolved Date Vitamin D deficiency 12/07/2018 020 H/O colonoscopy 07/27/2013 04/12/2020 Overview: Hyperplastic polyp, Tubular adenoma repeat 2018 Dr Reynaga Facial basal cell cancer Overview: Nose, Dr Martinez Insomnia 04/12/2020 Immunizations Name Administration Dates Next Due Shingrix Vaccine (Zoster Recombinant) 06/02/2020 Family History Medical History Relation Name Comments [...] drink = 0.6 oz pur e alcohol) rare Sex and Gender Information Value Date Recorded Sex Assigned at Not on file Gender Identity Not on file Sexual Orientation Not on file Last Filed Vital Signs Vital Sign Reading Time Taken Comments Blood Pressure 100/70 04/12/2020 2:56 PM EDT Pulse 82 04/12/2020 2:56 PM EDT Temperature 36.2 ??C (97.2 ??F) 04/12/2020 2:56 PM ED T Respiratory Rate 16 12/07/2018 10:37 AM EST Oxygen Saturation 97% 04/12/2020 2:56 PM EDT Inhaled Oxygen Concentration - - Weight 52.6 kg (116 lb) 04/12/2020 2:56 PM EDT Height 149.9 cm (4' 11 ) 04/12/2020 2:56 PM EDT Body Mass Index 23.43 04/12/2020 2:56 PM EDT Plan of Treatment Health Maintenance Due Date Last Done Comments Hepatitis C Screening 1955 COVID-19 Vaccine (#1) 06/09/1956 Preventative Health Evaluation 12/07/2019 12/07/2018, 02/10/2018 Shingrix-Zoster Vaccine (2 o f 2) 07/28/2020 06/02/2020, 06/02/2020 Depression Screening 04/12/2021 04/12/2020, 12/07/2018, 02/10/2018 Breast Cancer Screening (Mammogram) 09/26/2022 09/26/2020, 07/21/2018, 04/09/2016 Fall Risk Assessment 2022 Osteoporosis Screening (DEXA Scan) 2022 Pneumococcal Vaccine (1 of 1 - PCV) 2022 Influenza Vaccine (#1) 2024 DTap / Tdap / Td (2 - Td or Tdap) 12/01/2025 12/01/2015 Colon Cancer Screening (Colonoscopy) 11/18/2028 11/18/2018, 07/27/2013 RSV Adult > 60+ Yrs or (1 - 1-dose 75+ series) 2032 Hepatitis B Vaccines Aged Out No long er eligible based on patient's age to complete this topic RSV Ped < 20 months Aged Out No longe r eligible based on patient's age to complete this topic Care Teams Cable Installation Manager Relationship Specialty Start Date End Date Antonio Haji DO [address] [place] [address] PCP - General Internal Medicine 09/13/21
--- OUTSIDE RECORDS SUMMARY | 2024-12-21 10:49 | XMS_ITS ---
Author Organization [facility] Address [address] [place] [address] Care Team Providers Care Business School Dean Name Role Phone Adithya AVILEZ, Antonio Primary Care Provider Jorden Ortega [phone] REASON FOR VISIT Buy Lalo Abril #[phone] Encounters Encounter Location Date [facility] [address] 09/30/2023 Jorden Gregory Plan Of Treatment No Information Progress Notes * Moe COLLADOUliB:1955 (67 yo F)Acc No.[id number]:09/30/2023 Patient:?Karma Collado :1955???Age:67 Y???Sex:Female [address] [place], [address] * true * Date:? Generated for Claudettei jluis/Lito/eTransmitting on:?12/21/2024 10:49 AM EST
--- OUTSIDE RECORDS SUMMARY | 2024-12-21 10:49 | XMS_ITS | Patient Health Record ---
Author Organization [facility] Address [address] [place] [address] Care Team Providers Care Marketing Liaison Name Role Phone nAtonio Haji MD Primary Care Provider Jorden Ortega Unavailable [phone] Allergies Allergen (clinical drug ingredient) Drug/Non Drug Allergy documented on EMR Reaction Allergy Type Onset Date Status shrimp allergenic extract Shrimp (Diagnostic) hives Drug Allergy Active Reason For Referral No Information Medications Medication SIG (Take, Route, Frequency, Duration) Notes Start Date End Date Status Ibuprofen 800 MG 1 tablet with food o r milk as needed Orally Three times a day for 30 days PRN Active Multivitamins as directed Orally Not-Taking metroNIDAZOLE Not-Ta wandy Work Note . . . pt is disabled f rom work until return on 08/21/16 07/29/2016 Not-Taking Alendronate Sodium N ot-Taking Desonide Not-Taking Gabapentin 300 MG 1 capsule Orally Onc e a day hs for 10 days Not-Taking oxyCODONE HCl Not-Ta wandy Ibuprofen Prn Not-Taking Clotrimazole-Betamethason e 1-0.05 % 1 application to affected area Externally Twice a day to affected areas on feet for 30 days 05/03/2020 Not-Taking Work Note . . . patient may continue to work 6 hours daily and increase to 8 hours daily starting 07/31/2020 Not-Taking Work Note . . . patient had cortisone injection todya and is disabled from work until 10/11/23 Active Immunizations Vaccine Route Administration Date Status Comme nts COVID-19 Moderna Vaccine Unknown 10/23/2021 Administered 1st 01/06/2021 2nd 01/19/2021 Social History Tobacco Use: Social History Observation Description Date Details (start date - stop date) Never Smoker NA - NA Tobacco Use/Smoking Question Answer Notes Are you a: nonsmoker Additional Findings: Tobacco Non-User Aggressive non-smoker Alcohol Screen Question Answer Notes Did you have a drink containing alcohol in the p ast year? Yes Points 0 Interpretation Negative Tobacco use other than smoking: Question Answer Notes Are you an other tobacco user? 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) Active confirmed Plan Of Treatment Pending Test Test Name Order Date X ray : Foot, right 2V 01/04/2013 X ray : Foot, right 2V 12/25/2015 X ray : Foot, right 2V 07/02/2016 X ray : Foot, right 2V 07/29/2016 X ray : Foot, right 2V 09/09/2016 X ray : Foot, left 3V 12/29/2019 X ray : Foot, left 3V 05/03/2020 X ray : Foot, left 3V 05/17/2020 X ray : Foot, left 3V 07/20/2020 X ray : Foot, left 3V 11/16/2020 X ray : Foot, left 3V 11/28/2021 X ray : Foot, left 3V 06/19/2020 X ray : Foot, right 3V 09/30/2023 04133, J0702- INJECT or DRAIN, JOINT/BUR SA 10/07/2023 [id number], Toes 06/19/2020 [id number], Toes 05/24/2020 X ray : Ankle, right 3V 09/30/2023 Insurance Providers Payer Name Payer Address Payer Phone Subscriber Number Group Number Insured Name Patient Relationship to Insured Coverage Start Date Coverage End Date Blue Benefits [address] [address] [place] [address] [id number] Collado, Karma Self - patient is the insured Medical (General) History Medical History History ICD Code mumps headaches/migraines back, hip, knee pain chicken pox Osteoporosis Broken bones Measles Chicken pox Psoriasis/eczema Surgical History Surgery Date(Month/Year) nose surgery 06/2015 [place] R, dislocated sesamoid 06/27/16 bunion surgery HT L2nd, Dislocated L2nd MTPJ 04/27/2020 Hospitalization History Reason Date(Month/Year) [facility] Bunion right foot 06/27/16
--- OUTSIDE RECORDS SUMMARY | 2024-12-21 10:49 | XMS_ITS ---
Author Organization [facility] Address [address] [place] [address] Care Team Providers Care Sewing Teacher Name Role Phone Antonio Haji MD Primary Care Provider Jorden Ortega [phone] REASON FOR VISIT Foot pain Encounters Encounter Location Date Provider Diagnosis [facility] [address] [place] [address] 10/07/2023 Jorden Gregory Plan Of Treatment No Information Progress Notes * Moe COLLADOUliB:1955 (67 yo F)Acc No.[id number]:10/07/2023 Patient:?Karma Collado :1955???Age:67 Y???Sex:Female Address:[address] [place], [address] * true * Date:? Generated for Printi jluis/Lito/eTransmitting on:?12/21/2024 10:48 AM EST
--- OUTSIDE RECORDS SUMMARY | 2024-12-21 10:49 | XMS_ITS ---
Author Organization [facility] [place] Address [address] [facility] [place] [address] Care Team Providers Care Key Bed Installer Name Role Phone Antonio Haji MD Primary Care Provider Jorden Ortega [phone] Allergies Allergen (clinical drug ingredient) Drug/Non Drug Allergy documented on EMR Reaction Allergy Type Onset Date Status shrimp allergenic extract Shrimp (Diagnostic) hives Drug Allergy Active Medications Medication SIG (Take, Route, Frequency, Duration) Notes Start Date End Date Status Multivitamins as directed Orally Not-Taking metroNIDAZOLE Not-Ta wandy Work Note . . . pt is disabled f rom work until return on 08/21/16 07/29/2016 Not-Taking Desonide Not-Taking Work Note . . . patient had cortisone injection todya and is disabled from work until 10/11/23 Active Alendronate Sodium N ot-Taking Gabapentin 300 MG 1 capsule Orally Onc e a day hs for 10 days Not-Taking oxyCODONE HCl Not-Ta wandy Ibuprofen Prn Not-Taking Clotrimazole-Betamethason e 1-0.05 % 1 application to affected area Externally Twice a day to affected areas on feet for 30 days 05/03/2020 Not-Taking Ibuprofen 800 MG 1 tablet with food o r milk as needed Orally Three times a day for 30 days PRN Active Work Note . . . patient may continue to work 6 hours daily and increase to 8 hours daily starting 07/31/2020 Not-Taking Social History Tobacco Use: Social History Observation [...] Are you an other tobacco user? No Vital Signs Height 5ft 1in in 10/07/2023 Weight 110 lbs 10/07/2023 BMI 20.78 kg/m2 10/07/2023 Procedures Procedure Date Ordered Date Performed Result Body Sit e - INJECT or DRAI N, JOINT/BURSA 10/07/2023 N/A Encounters Encounter Location Date Provider Diagnosis [facility] [place] [address] [facility] [address] [place] [address] 10/07/2023 Jorden Gregory Pain in right foot M79.671 and Arthritis of right ankle M19.071 Assessments Encounter Date Diagnosis (ICD Code) Assessment Notes Treatment Notes Treatment Clinical Notes Section Notes 10/07/2023 Pain in right foot (ICD-10 - M79.671) 10/07/2023 Arthritis of right ankle (ICD-10 - M19.071) Plan Of Treatment Medication Medication Name Sig Start Date Stop Date Notes Work Note . . . patient had james isone injection todya and is disabled from work until 10/11/23 Pending Test Test Name Order Date - INJECT or DRAIN, JOINT/BUR SA 10/07/2023 Next Appt Details Follow Up: prn, Reason: Procedure Notes * Category Sub-Category Detail Notes Injection Med: Joint,Bursa (Sinus Tarsi,AJ ) Injection # Med/Ankle joint bursa/capsule 1cc 1% Xylo.pl + 3mg Celestone Soluspan utilizing aseptic technique. The patient tolerated the procedure well. A dry sterile dressing was applied. Post injection instructions were dispensed, verbally discussed, and confirmed understood by the patient. I explained that a steroid and local anesthetic injection usually decreases pain and inflammation. I explained the possible complications including but not limited to signs/symptoms of steroid flare, change/deviation in toe position, infection, bruising, atrophy, discoloration of skin, additional injections may be necessary, RIGHT ankle--anterior distal fibula and sinus tarsi Progress Notes * Nicol COLLADO:1955 (67 yo F)Acc No.[id number]:10/07/2023 Progress Note Patient:Karma Payne Provider:?Jorden Gregory DPM :1955???Age:67 Y???Sex:Female D ate:10/07/2023 Address:[address] [place] [address], [facility], [id number] Pcp:Antonio Haji MD Subjective: * Chief Complaints: * ??? * HPI: ???Foot Pain:?Nature:?sharp.?Location?Outside, Rearfoot and ankle, Right .?Duration:?several weeks.?Onset/Cause:?unknown, denies trauma.?Course:?worse, intermittent.?Aggrevated:?any pressure, standing, walking, work.?Treatments:?rest, change in shoes, viva.?Quality/Severity?10, scale 1-10.? * ROS:?General/Constitutional:?Nausea?denies, denies.?Vomiting?denies, denies.?Hunger Thirst?denies, denies.?Loss appetite?denies, denies.?Chills?denies, denies.?Fatigue?denies, denies.?Fever?denies, denies.?Night Sweats denies, denies.?Unexplained weight loss?denies, denies.?Unexplained weight gain?denies.?Ophthalmologic:?Blurred vision?denies.?Red eye?denies.?HEENTM:?Dentures?denies, denies.?Dizziness?denies, denies.?Glasses/contacts?denies, denies.?Retinopathy?denies, denies.?Blurred/double vision?denies, denies.?TMJ?denies, denies.?Discharge/drainage?denies, denies.?Implants?denies, denies.?Sore throat?denies.?Dental implants?denies.?Hard of hearing ?denies, denies.?Difficulty chewing/swallowing/speaking?denies, denies.?Nose bleeds?denies, denies.?Sore mouth?denies, denies.?Swollen glands?denies.?Respiratory:?On Oxygen?denies, denies.?Pneumonia/pleurisy?denies, denies.?Bronchitis?denies, denies.?Emphysema?denies, denies.?Coughing?denies, denies.?Cough blood?denies, denies.?Shortness of breath?denies, denies.?Wheezing?denies, denies.?Cardiovascular:?Pacemaker?denies, denies.?MVP?denies, denies.?WPW?denies, denies.?CHF?denies, denies.?Heart attack?denies, denies.?Septal defect?denies, denies.?Rapid beat?denies, denies.?Chest pain ?denies, denies.?Atrial Fib.?denies, denies.?Murmur/Palpitations?denies, denies.?Gastrointestinal:?Hemorrhoids?denies, denies.?Stomach/Abdominal pain?denies, denies.?Dark blood stool?denies, denies.?Irritable bowel ?denies, denies.?Constipation?denies, denies.?Diarrhea?denies, denies.?Vomiting?denies.?Hematology:?Swelling?denies, denies.?Clots?denies.?Varicose Veins?denies.?Bruising?denies, denies.?Bleeding problem?denies, denies.?Genitourinary:?Blood urine?denies, denies.?Frequent/Painfu/urination/bladder control?denies, denies.?Kidney stones?denies, denies.?Infection (UTI)?denies, denies.?Nephropathy?denies, denies.?sex trans dis (STD)?denies.?Prostate?denies.?Musculoskeletal:?Hammertoes?denies, denies.?Bunions?denies, denies.?Scoliosis/kyphosis?denies.?Back Pain?denies.?Muscle Cramps/ Resting?denies.?Muscle cramps / walking?denies, denies.?Generalized aches and pains?denies, denies.?Weakness?denies, denies.?Integ.:?Serrano?denies, denies.?Scars?denies, denies.?Corns/calluses?denies, denies.?Ingrown nails?denies, denies.?Painful nails?denies, denies.?Open Sores?denies.?Rashes?denies, denies.?Neurologic:?Difficulty sleeping?denies, denies.?Bipolar?denies.?Brain disorder?denies, denies.?Numbness?denies.?Balance trouble?denies, denies.?Confusion?denies, denies.?Fainting/blackouts?denies, denies.?Headache?denies.?Tingling?denies.?Tremors?denies, denies.? * Medical History:? * Surgical History:?nose surge ry ustin R, dislocated sesamoid 06/27/16bunion surgery HT L2nd, Dislocated L2nd MTPJ 04/27/2020 * [place]Major Diagno stic [place] [place] 06[place]27[place] * Family History:?Mother: aliv e, foot problems, diagnosed with Unspecified essential hypertension.?Father: alive, diagnosed with Family history of arthritis, Unspecified essential hypertension.? * Social History:?Tobacco Use:?Tobacco Use/Smoking?Are you a:?nonsmoker ?Additional Findings: Tobacco Non-User?Aggressive non-smoker ?Tobacco use other than smoking?Are you an other tobacco user??No ???Drugs/Alcohol:?Drugs?Have you used drugs other than those for medical reasons in the past 12 months??No ?Alcohol Screen?Did you have a drink containing alcohol in the past year??Yes ?Points?0 ?Interpretation?Negative ???Miscellaneous:?Caffeine: yes, frequency:. ?no Children. ?Exercise: yes, walking. ?Marital status: single. 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 * Medications:?TakingIbuprofen 800 MG Tablet 1 tablet with food or milk as needed Orally Three times a day, Notes: PRNWork Note . . . . patient be allowed to wear running shoes to work for one yearTaking Ibuprofen 800 MG Tablet 1 tablet with food or milk as needed Orally Three times a day, Notes: PRNTaking Work Note . . . . patient be allowed to wear running shoes to work for one yearNot-Taking/PRNWork Note . . . . patient may continue to work 6 hours daily and increase to 8 hours daily starting 07/31/2020Ibuprofen , Notes: PrnClotrimazole-Betamethasone 1-0.05 % Cream 1 application to affected area Externally Twice a day to affected areas on feetGabapentin 300 MG Capsule 1 capsule Orally Once a day hsoxyCODONE HCl Alendronate Sodium Desonide metroNIDAZOLE Work Note . . . . pt is disabled from work until return on 08/21/16Multivitamins Capsule as directed Orally Medication List reviewed and reconciled with the patientNot-Taking/PRN Work Note . . . . patient may continue to work 6 hours daily and increase to 8 hours daily starting 07/31/2020Not- Taking/PRN Ibuprofen , Notes: PrnNot-Taking/PRN Clotrimazole-Betamethasone 1-0.05 % Cream 1 application to affected area Externally Twice a day to affected areas on feetNot-Taking/PRN Gabapentin 300 MG Capsule 1 capsule Orally Once a day hsNot-Taking/PRN oxyCODONE HCl Not-Taking/PRN Alendronate Sodium Not-Taking/PRN Desonide Not-Taking/PRN metroNIDAZOLE Not-Taking/PRN Work Note . . . . pt is disabled from work until return on 08/21/16Not-Taking/PRN Multivitamins Capsule as directed Orally Medication List reviewed and reconciled with the patient * Allergies:?Shrimp (Diagnosti c): hivesyes[Allergies Verified] Objective: * Vitals:?Ht: 5ft 1in, Wt:110, BMI:20.78, Shoe size: 6, Ht-cm: 154.94 cm, Wt-k.9 kg. * Examination: ???General Examination: ?GENERAL APPEARANCE:?pleasant, alert, well nourished, well developed, well hydrated, with good attention to hygene/body habitus, and in no acute distress.?ORIENTED:?person,place, and time.?Neurological: ?SENSORY:?Neurological exam is normal, pain sensation normal, vibration sensation intact, pinprick sensation is normal in the lower extremities, denies, tingling, burning, anesthesia, paresthesia, hyperesthesia, B/L, Neurological exam demonstrates pop rt sinus tarsi and anterior right distal fibula.?TINEL'S COMPRESSION:?Negative tarsal tunnel, hermelinda pedis, and medial calcaneal nerves B/L.?BABINSKI REFLEX:?absent.?Neuroma Pain: ?PALPATION:?No interspace pain noted on palpation.?Vascular: ?DP PULSES:?2/4, B/L.?PT PULSES:?2/4, B/L.?CAPILLARY FILL TIME:?3 secs. per digit, B/L.?SKIN TEMPERTURE GRADIENT OF THE LOWER EXTERMITIES:?warm to cool, proximal to distal, B/L.?HAIR GROWTH/TEXTURE/ELASTICITY/TURGOR:?normal, B/L.?PIGMENTATION:?normal, B/L.?EDEMA:?no edema.?TELANGECTASIA:?absent.?VARICOSITIES:?absent.?Dermatologic: ?SKIN FINDINGS:?Skin exam reveals normal texture, elasticity, and tugor. There are no masses. The interspaces are clear, B/L .?Orthopedic: ?MUSCLE STRENGTH:?5/5 all groups in a symmetrical fashion , B/L.?GAIT ABNORMALITY:?pronated, abducted, B/L.? Assessment: * Assessment: 1.?Pain in right foot - M79. 671 (Primary)?2.?Arthritis of right ankle - M19.071? Plan: * Treatment: 2.?Arthritis of right ankle?Procedure: , - INJECT or DRAIN, JOINT/BURSA * Procedures:?Injection:?Med: Joint,Bursa (Sinus Tarsi,AJ)? Injection # Med/Ankle joint bursa/capsule 1cc 1% Xylo.pl + 3mg Celestone Soluspan utilizing aseptic technique. The patient tolerated the procedure well. A dry sterile dressing was applied. Post injection instructions were dispensed, verbally discussed, and confirmed understood by the patient. I explained that a steroid and local anesthetic injection usually decreases pain and inflammation. I explained the possible complications including but not limited to signs/symptoms of steroid flare, change/deviation in toe position, infection, bruising, atrophy, discoloration of skin, additional injections may be necessary, RIGHT ankle--anterior distal fibula?and sinus tarsi.? * Procedure Codes:?J0702 INJ B ETAMETHSN ACTAT&SOD [id number] DRAIN/INJECT, JOINT/BURSA, Modifiers: XS * Follow Up:?prn * Images: * Sign off status: Completed true * Provider:?Jorden Gregory DPM Date:? 023 Generated for Printi ng/Faguig/eTransmitting on:?12/21/2024 10:48 AM EST History and Physical Notes * HPI (History of Present Illness) Category Sub-Category Detail Notes Category Not es Foot Pain Aggrevated: any pressure, standing, walk ing, work Onset/Cause: unknown, denies trau ma Course: worse, intermittent Duration: several weeks Nature: sharp Treatments: rest, change in shoe s, viva Quality/Severity 10, scale 1-10 Location Outside, Rearfoot an d ankle, Right Examination Category Sub-Category Detail Notes Category Not es Neuroma Pain PALPATION: No interspace pain noted on palpation Neurological SENSORY: Neurological exa m is normal, pain sensation normal, vibration sensation intact, pinprick sensation is normal in the lower extremities, denies, tingling, burning, anesthesia, paresthesia, hyperesthesia, B/L, Neurological exam demonstrates pop rt sinus tarsi and anterior right distal fibula BABINSKI REFLEX: absent TINEL'S COMPRESSION: Negative tarsal tate wander, hermelinda pedis, and medial calcaneal nerves B/L Dermatologic SKIN FINDINGS: Skin exam reveal s normal texture, elasticity, and tugor. There are no masses. The interspaces are clear, B/L Orthopedic GAIT ABNORMALITY: pronated, abducted, B/L MUSCLE STRENGTH: 5/5 all groups in a symmetrical fashion , B/L General Examination GENERAL APPEARANCE: pleasant , alert, well nourished, well developed, well hydrated, with good attention to hygene/body habitus, and in no acute distress ORIENTED: person,place, and ti me Vascular DP PULSES (B): 2/4, B/L PT PULSES (B): 2/4, B/L CAPILLARY FILL TIME: 3 secs. per digit, B/L TEMPERTURE GRADIENT (C): warm to cool, p roximal to distal, B/L TROPHIC CONDITION-TEXTURE/ELASTICITY/TURGOR/HAIR GROWTH (B): normal, B/L EDEMA (C): no edema TELANGECTASIA: absent VARICOSITIES: absent PIGMENTATION: normal, B/L
[2025-01-20 11:16] VITALS: BMI 24.0
--- NOTE | 2025-01-21 09:34 | P.CONAN_ITS ---
Documented by User: Terri Lai NP 01/21/25 09:34 HPI - Anesthesia Eval Consult details Narrative: 69yo F for Colonoscopy PMFSH Active Problems Active Problems: All Active Problems Pre-op examination (Acute) Tubular adenoma of colon (Acute) Eczema (Acute) Primary osteoarthritis of right knee (Acute) Acute rhinosinusitis (Acute) Family History Family History Family/Other Breast cancer Surgical History Surgical History H/O colonoscopy H/O foot surgery Social History Social History Alcohol intake: never Patient Tobacco Use Status: Never used Tobacco Use of substances other than those prescribed or required for medical reasons: No Are you DNR?: No Advance Directives: No Advance Directives Information Provided: Yes Current occupational status: employed 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 Meds Allergies Allergy/AdvReac Type Severity Reaction Status Date / Time shrimp Allergy Intermediate HIVES Verified 08/17/24 11:24 Home Medications ?Medication ?Instructions ?Recorded ?Confirmed ?Last Taken ?Type No Known Home Meds 08/17/24 08/17/24 Unknown History Exam Height,Weight and Vital Signs: Height 4 ft 11 in Weight 53.977 kg Assessment and Plan Assessment Anesthesia Assessment: Chart Reviewed Documented by User: Tila Cosby MD 01/24/25 08:24 PMFSH Family History Family History Family/Other Breast cancer Surgical History Surgical History H/O colonoscopy H/O foot surgery History of Problems with Anesthesia: No Social History Social History Alcohol intake: never Patient Tobacco Use Status: Never used Tobacco Use of substances other than those prescribed or required for medical reasons: No Are you DNR?: No Advance Directives: No Advance Directives Information Provided: Yes Current occupational status: employed 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 Meds Allergies Allergy/AdvReac Type Severity Reaction Status Date / Time shrimp Allergy Intermediate HIVES Verified 08/17/24 11:24 Home Medications ?Medication ?Instructions ?Recorded ?Confirmed ?Last Taken ?Type No Known Home Meds 08/17/24 08/17/24 Unknown History Exam Airway Mallampati Class: II TM Dist: >3cm Neck ROM: Full Loose/Missing/Broken Teeth: No Heart: RRR Lungs: CTA Assessment and Plan Assessment Anesthesia Assessment: Anesthesia Plan Discussed Final Anesthetic Review History of Problems with Anesthesia: No NPO: Yes ASA Class: II Final Preanesthetic Review: Meds/Allgs Chart Reviewed, Consent Obtained/Reviewed and Anes Risks/Benef Reviewed Patient Risk: Low Procedure Risk: Low Anesthetic Plan Anesthetic Plan: MAC: Disposition: Standard PACU
[2025-01-24 07:28] VITALS: BP 119/66; PULSE 60; RESP 16; TEMP 36.9; O2SAT 95
--- NOTE | 2025-01-24 07:36 | MHC.SHP ---
Pre-Procedural Eval Section A - 24 Hr Update-Section A only Date of Service: 01/24/25 The patient is an INPATIENT: No The patient has been examined within 24 hours of the surgical procedure. The History & Physical has been completed within 30 days and I have reviewed it.: No Section B - Complete if H&P > 30 days Chief Complaint: Surveillance for colon polyps Relevant Family History (Specify if Yes): No Relevant Social History: None Present Medications: see Short Stay Collaborative assessment Medical History: Significant History (Osteoarthritis) History of Previous Operations: Relevant previous surgery/procedure and date(s) (H/O colonoscopy H/O foot surgery) Allergies: Allergies Allergy/AdvReac Type Severity Reaction Status Date / Time shrimp Allergy Intermediate HIVES Verified 08/17/24 11:24 Review of Systems Sugical H&P ROS: Negative: Constitution, Cardiovascular, Respiratory and Gastrointestinal Exam Surgical H&P Exam: Normal: Heart, Normal: Lungs, Normal: Extremities and Normal: Abdomen Plan Diagnosis/Plan: Unchanged I have reviewed the history and physical and performed a pertinent physical examination on my patient. No changes have occurred unless specified. Time Spent With Patient Time: Total time managing care of this patient today ____ minutes.
[2025-01-24] MEDS: Lactated Ringers 1,000 ML 100 ML IVCONT (08:07)
--- NOTE | 2025-01-24 09:23 | P.OPN-COLO_ITS ---
Colonoscopy Operative Note Operative Note Date of Service: 01/24/25 Narrative: COLONOSCOPY TILL CECUM WITH BIOPSIES Pre-op diagnosis: Surveillance for colon polyps. Post-op diagnosis:? Colon polyps, Diverticulosis Endoscopist:? Nura Maddox MD Anesthesia:?MAC Consent: Indications for the procedure and potential complications of bleeding, perforation, reaction to medications and missed diagnosis were discussed with the patient and informed consent was obtained. Instrument: Olympus PCF H 190 L variable stiffness pediatric colonoscope Monitoring: Vital signs and clinical assessment, intermittent blood pressure monitoring, continuous EKG monitoring, Pulse oximetry and Carbon Dioxide monitoring were done throughout the procedure. Please see anesthesia flowsheet. Colon withdrawl time was 26 minutes. Procedure: The patient was placed in the left lateral decubitis position and pre-procedure medications were administered. After a digital rectal examination of the ano-rectum, the video colonoscope was inserted into the rectum and advanced through the colon to the cecum. The colonoscope was slowly withdrawn in a retrograde panoramic fashion and the colon mucosa was carefully examined including a retroflexed view of the rectum. Findings and interventions are described below. Procedure Difficulty: Colon was long and tortuous and there was spasm and some loop formation Findings: Terminal Ileum: Not evaluated Cecum: Normal Ascending Colon: Normal Transverse Colon: Normal Descending Colon: Normal Sigmoid Colon: Moderate diverticulosis Rectum: A 2-3 mm diminutive appearing polyp - removed with a cold biopsy Ano-rectum: Hypertrophied anal papillae. Colon preparation: Good after copious irrigation. Sanford Bowel Preparation Scale Right colon; 2 Transverse colon: 2 Left colon; 2 (0 = Unprepared colon segment with mucosa not seen due to solid stool that cannot be cleared. 1 = Portion of mucosa of the colon segment seen, but other areas of the colon segment not well seen due to staining, residual stool and/or opaque liquid. 2 = Minor amount of residual staining, small fragments of stool and/or opaque liquid, but mucosa of colon segment seen well. 3 = Entire mucosa of colon segment seen well with no residual staining, small fragments of stool or opaque liquid) Impression and Post Procedure Diagnosis: Colonoscopy Findings: One small diminutive appearing polyp was removed Random biopsies were obtained from right and left colon to check for microscopic colitis. (Pt complained of passage of clear mucous with leakage) Moderate diverticulosis seen in the sigmoid colon Plan: I will send a letter with biopsy results. Repeat Colonoscopy in 5 years if polyps are adenomatous and due to history of adenomatous colon polyps (Dulcolax 10 mg daily for 5 days before next colonoscopy appointment). Above findings were reviewed with the patient and relevant handouts were given and the discharge area.
[2025-01-24 09:25] VITALS: BP 111/63; PULSE 64; RESP 12; TEMP 36.8; O2SAT 98
[2025-01-24 09:40] VITALS: BP 115/61; PULSE 60; RESP 16; O2SAT 96
[2025-01-24 09:55] VITALS: BP 120/61; PULSE 58; RESP 16; TEMP 36.8; O2SAT 100
== END 2025-01-24 10:26 | disposition home or self-care (01) ==
PROVIDERS: PCP Internal Medicine; Visit Provider Internal Medicine Gastroenterology
PROC: 0DJD8ZZ Inspection of Lower Intestinal Tract, Via Natural or Artificial Opening Endoscopic (ICD-10-PCS; CPT 45378; principal; 2025-01-24 08:30)
DX: Z12.11 Encounter for screening for malignant neoplasm of colon (principal); Z86.0101 Personal history of adenomatous and serrated colon polyps; K62.1 Rectal polyp; K57.30 Diverticulosis of large intestine without perforation or abscess without bleeding; K62.89 Other specified diseases of anus and rectum; M19.90 Unspecified osteoarthritis, unspecified site; Z98.890 Other specified postprocedural states
CPT/HCPCS: 45380; 88305; J2003; J2704

== ENCOUNTER → 2025-01-24 07:13 | Outpatient (BNV) | payer OTHER, SELFPAY | PROVIDERS: PCP Internal Medicine; Visit Provider Internal Medicine Gastroenterology | DX: Z12.11 Encounter for screening for malignant neoplasm of colon (principal); Z86.0100 Personal history of colon polyps, unspecified; K62.1 Rectal polyp; K57.30 Diverticulosis of large intestine without perforation or abscess without bleeding | CPT/HCPCS: 45380 ==

== ENCOUNTER 2025-04-26 06:28 | Outpatient (REF) | payer OTHER, SELFPAY ==
--- NOTE | ~2025-04-26 | XR_ITS ---
EXAMINATION: XR KNEE 3 VIEWS RIGHT HISTORY: M17.11 - Unilateral primary osteoarthritis, right knee COMPARISON: Comparison is made with the prior examination dated 05/01/2021. FINDINGS: Three views of the right knee are submitted. Osseous mineralization is normal. There is no fracture or dislocation. There is severe osteoarthritis of the medial compartment, with joint space narrowing and osteophyte formation. There is mild degenerative change of the patellofemoral compartment. The soft tissues are unremarkable. There is no joint effusion. XR/XR knee RT 3V IMPRESSION: Osteoarthritis of the right knee as described. Electronically signed by: Ritesh Fisher MD 04/26/2025 02:06 PM EDT
--- OUTSIDE RECORDS SUMMARY | 2025-04-27 06:37 | XMS_ITS | Clinical Summary ---
Author Organization [facility] Address [address] [place] [address] Care Team Providers Care Drilling Manager Name Role Phone Antonio Haji DO Primary Care Provider [phone] Allergies No known active allergies Medications No [...] age to complete this topic Care Teams Drilling Manager Relationship Specialty Start Date End Date Antonio Haji DO [address] [place] [address] PCP - General Internal Medicine 09/13/21
--- OUTSIDE RECORDS SUMMARY | 2025-04-27 06:37 | XMS_ITS | Patient Health Record ---
Author Organization [facility] Address [address] [facility] [place] [address] Care Team Providers Care Photovoltaic Subcontractor Name Role Phone Antonio Haji MD Primary Care Provider Jorden Ortega Unavailable [phone] Allergies Allergen (clinical drug ingredient) Drug/Non Drug [...] Status Risk Notes Problem Pain in limb (61441543) Pain in unspecified toe(s) (M79.676) Active confirmed Problem Other hammer toe(s) (acquired), left foot (M20.42) Active confirmed Problem Arthritis of right ankle (3670529989371 106) Arthritis of right ankle (M19.071) Active [...] X ray : Foot, right 3V 09/30/2023 66966, J0702- INJECT or DRAIN, JOINT/BUR SA 10/07/2023 [id number], Toes 06/19/2020 [id number], Toes 05/24/2020 X ray : Ankle, right 3V 09/30/2023 Insurance Providers Payer Name Payer Address Payer Phone Subscriber Number Group Number Insured Name Patient Relationship to Insured Coverage Start Date Coverage End Date Blue Benefits [address] [address] [place] [address] [id number] Karma Collado Self - patient is the insured Medical (General) History Medical History History ICD Code mumps headaches/migraines back, hip, knee pain chicken pox Osteoporosis Broken bones Measles Chicken pox Psoriasis/eczema Surgical History Surgery Date(Month/Year) nose surgery 06/2015 Tucker R, dislocated sesamoid 06/27/16 bunion surgery HT L2nd, Dislocated L2nd MTPJ 04/27/2020 Hospitalization History Reason [place] [facility] [place]27[place]16
--- OUTSIDE RECORDS SUMMARY | 2025-04-27 06:37 | XMS_ITS | Clinical Summary ---
[facility] Organization [facility] Address [address] [place] [address] Care Team Providers Care Emt/Dispatcher Name Role Phone Antonio Haji DO Primary Care Provider [phone] Surgical History Surgery Date Site/Laterality Comments COLONOSCOPY [...] age to complete this topic Care Teams Emt/Dispatcher Relationship Specialty Start Date End Date Antonio Haji DO [address] [facility] [address] [place], [place] PCP - General Internal Medicine 09/13/21
== END 2025-04-26 06:29 | disposition home or self-care (01) ==
LOC: HO.HOSX 06:28
PROVIDERS: Visit Provider Orthopaedic Surgery
DX: M17.11 Unilateral primary osteoarthritis, right knee (principal)
CPT/HCPCS: 73562

== ENCOUNTER 2025-04-26 13:46 | Outpatient (AMB) | payer OTHER, SELFPAY ==
[2025-04-26 13:50] VITALS: BMI 24.0
--- NOTE | 2025-04-26 13:50 | MHC.OFFVIS ---
Vital Signs 04/26/25 13:50 Height 4 ft 11 in Weight 119 lb BMI 24.0 Intake Visit Reasons: Est Patient from 2020 -Right Knee Pain Intake Note: Karma is a 69 year old female who presents with complaints of progressively worsening right knee pain. The patient describes her pain as sharp and severe in nature. She has failed the last 3 months of conservative treatment which has included a home exercise program, physical therapy exercises, meloxicam, and Tylenol. She has had multiple cortisone injections given into her right knee by Dr. Peacock in the past. The most recent cortisone injection gave her no relief. At this point her right knee pain is interfering with her activities of daily living and her ability to sleep well through the night. She wishes to hold off on total knee replacement surgery for as long as possible. 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 Physical Exam Vital Signs: BMI result Body Mass Index 24.0 Const Other: Well-nourished well-developed very friendly female awake alert and oriented x3 in no acute distress Extrem Other: Bilateral lower extremity examination shows good capillary refill, no skin lesions noted, normal sensation light touch Right knee examination shows a minimal effusion, palpable crepitus with range of motion, pain with range of motion, no instability Results Reviewed Results Reviewed: X-rays of the patient's right knee show joint space narrowing, subchondral sclerosis, no acute bony abnormalities Assessment & Plan Assessment & Plan (1) Primary osteoarthritis of right knee: Code(s): M17.11 - Unilateral primary osteoarthritis, right knee Category: Medical Plan Ms. Collado presents with progressively worsening right knee pain due to osteoarthritis. I had a lengthy discussion with the patient regarding the treatment options. She wishes to hold off on right total knee replacement surgery for as long as possible. I agree with this plan. She has had cortisone injections in the past. The most recent cortisone injection gave her no relief. Thus, I will see if her insurance company will cover a viscosupplementation injection such as Durolane. I will see her back once the injection is available. Feel free to call me at any time should questions regarding her orthopedic management arise. I spent 21 minutes in reviewing the patient's records and imaging studies, seeing the patient and documenting in the medical record. Orders: Orders XR knee RT 3V 04/26/25 M17.11 - Unilateral primary osteoarthritis, right knee Medications: New meloxicam 15 mg PO DAILY PRN 30 tabs 3RF pain Coding Level of Care Code Est Pt Level 3 (99675) Complex EM visit Add On G2211 Diagnoses Primary osteoarthritis of right knee M17.11
--- OUTSIDE RECORDS SUMMARY | 2025-04-26 14:55 | XMS_ITS | Clinical Summary ---
Author Organization [facility] Address [address] [place] [address] Care Team Providers Care Melting Supervisor Name Role Phone Antonio Haji DO Primary Care Provider [phone] Allergies No known active allergies Medications No [...] 82 04/12/2020 2:56 PM EDT Temperature 36.2 C (97.2 F) 04/12/2020 2:56 PM EDT Respiratory Rate 16 12/07/2018 10:37 AM EST [...] of 1 - PCV) 2022 Influenza Vaccine (Season Ended) 2025 DTap / Tdap / Td (2 - [...] age to complete this topic Care Teams Melting Supervisor Relationship Specialty Start Date End Date Antonio Haji DO [address] [place] [address] PCP - General Internal Medicine 09/13/21
--- OUTSIDE RECORDS SUMMARY | 2025-04-26 14:55 | XMS_ITS | Data Portability ---
Author Organization [facility], Telehealth Patient Home Address [address] [place] [address] Assessment No assessment recorded. Plan of Treatment Reminders Order Date Submit Date Provider Last Modified By Organization Details Last Modified Time Details Appointments ANNUA L EXAM 2024 10:30A M EDEN MANN Not available Not available Not available Lab CBC w/ auto diff 2023 024 [facility], [address] [place] [address], [id number], 07/20/2024 15:46:16 CMP, serum or plasm a 2023 024 [facility], [address] [place] [address], [id number], 07/20/2024 15:46:16 lipid panel , blood 2023 024 [facility], [address] [place] [address], [id number], 07/20/2024 15:46:16 CMP, serum or plasm a 2021 022 [facility], [address] [place] [address], [id number], 03/29/2022 10:30:44 CBC w/ auto diff 2021 022 [facility], [address] [place] [address], [id number], 03/29/2022 10:30:44 lipid panel , blood 2021 022 [facility], [address] [facility], [place], [address], 03/29/2022 10:30:43 Referral gastr london stewart ist refer ral - has been seen previ ously with Dr. Luis Alfredo lama [email or web address] [facility], [address] [place] [address] Dr, [facility], MICHAEL [place], [address], 05/21/2024 09:17:39 Procedures None recor ded. Surgeries None recor ded. Imaging MAMMO , scree raj, digit al, bilat eral 2023 024 [facility], [address] [place] [address] [place], [address], 06/02/2024 08:19:33 Medication Orders linac lotid e 72 mcg capsu le 2024 025 [id number], [address], [place], [id number], 02/01/2025 10:52:17 triam cinol one aceto nide 0.1 % topic al cream 2021 022 [facility] #[id number], [address], [place], [id number], 03/29/2022 10:19:48 Patient TargetsNo targets recorded. Patient InstructionsNo instructions recorded. Reason for Referral Glass Bender Referral for Screening colonoscopy needs fu colonoscopy, due every 5 years, also having new onset GI symptoms has been seen previously with Dr. Molina Referring Physician: Paola Parikh, Internal Medicine, Encounter Date: 05/19/2024 Results Created Date Observation Date Name Description Value Unit Range Abnormal Flag Note LastModifiedBy Organization Detail LastModifiedTime 10/01/20 22 09/26/2022 bone densi ty No observ ation record ed. [facility] [employer] [facility] [place] [address], [place], [address], 10/01/2022 14:28:38 06/11/20 24 06/09/2024 MAMMO , scree raj, digit al, bilat eral No observ ation record ed. [facility] [address] [place], [address], 07/20/2024 15:35:40 Result Notes None recorded. Problems Name Problem SNOMED Code Status Onset Date Resolution Date Notes Provider Name and Address Organization Details Recorded Time Eczema 91702681 Active 2021 EDEN MANN [address] [place] [address], [phone], [facility] 2 10:18:30 Constipati on 23820845 Active 2024 EDEN MANN [address] [place] [address], [phone], [facility] 5 10:40:24 Diverticul osis of colon 162915559 Active 2024 EDEN MANN [address] [place] [address], [address], [facility] 5 10:52:22 Problem Notes None recorded. Procedures Surgical History Date Name Laterality Status Provider Name and Address Organization Details Recorded Time 10/30/19 21 Date of Last Pap Smear completed Xiomara Squires [facility] 04/01/2022 11:50:28 10/30/19 21 Most Recent Mammogram completed Xiomara Squires [facility] 04/01/2022 11:51:08 excision of bunion completed EDEN MANN [address] [place] [address], [phone], [facility] 03/29/2022 10:14:03 Imaging Results None recorded. Procedure Notes None recorded. Medical Equipment None Reported. Allergies Allergen ID Allergen Name Allergen Category Reaction Reaction Severity Criticality Documentation Date Start Date Code Code System Note Provider Name and Address Organization Details Recorded Time 5766 shrimp allergeni c extract food hives moderate Not available 03/29/2022 87812 2 RxNorm Xiomara mcdaniel [facility] 2 09:50:20 Medications Name Sig Start Date Stop Date Status Note LastModified by Organization Details LastModified Time triamcinolone acetonide 0.1 % topical cream APPLY A THIN LAYER TO THE AFFECTED AREA(S) BY TOPICAL ROUTE 2 TIMES PER DAY 2021 active Not Available Not Available Not Avai lable Fish Oil TAKE ONE TABLET A DAY active Not Available Not Available No t Available Linzess 72 mcg capsule active Not Available Not Available Not Available Vitals Date Recorded Body height Body mass index (BMI) Body weight Provider Name and Address Organization Details Last Updated DateTime 02/01/2025 149.86 cm 24.3 kg/m2 07702.88 g Doris Fox [facility] 02/01/2025 10:22:55 Date Recorded Body weight Body mass index (BMI) Body height Oxygen saturation Oxygen saturation in Arterial blood by Pulse oximetry Heart rate Systolic blood pressure Diastolic blood pressure Provider Name and Address Organization Details Last Updated DateTime 2 27248.9 2 g 23.3 kg/m2 149.86 cm 99 % 99 % 62 /min 118 mm[Hg] 70 mm[Hg] Xiomara Squires [facility] 2 09:51:55 Date Recorded Body height Body mass index (BMI) Body weight Heart rate Oxygen saturation Oxygen saturation in Arterial blood by Pulse oximetry Systolic blood pressure Diastolic blood pressure Provider Name and Address Organization Details Last Updated DateTime 4 149.86 cm 24.2 kg/m2 52594.7 3 g 70 /min 98 % 98 % 118 mm[Hg] 70 mm[Hg] Jose Orlando [facility] 4 09:13:41 Date Recorded Body height Body mass index (BMI) Body weight Heart rate Oxygen saturation Oxygen saturation in Arterial blood by Pulse oximetry Systolic blood pressure Diastolic blood pressure Provider Name and Address Organization Details Last Updated DateTime 4 149.86 cm 23.9 kg/m2 94215.7 g 67 /min 98 % 98 % 114 mm[Hg] 74 mm[Hg] Doris Fox [facility] 15:23:34 Social History Question Answer Notes LastModified by Organizat ion Details LastModified Time Tobacco Smoking Status Never Smoker Xiomara mcdaniel [facility] 03/29/2022 09:47:11 What Is Your Level Of Caffeine Consumption? Moderate 2 Cups Per Day Information not available 04/01/2022 What Was The Date Of Your Most Recent Tobacco Screening? 07/20/2024 [email or web address] Information not available 07/20/2024 Sex: Unknown Functional Status Question Answer Note LastModified by Organizat ion Details LastModified Time Do you use any illicit or recreational drugs? No Information not available 04/01/2022 What is your level of alcohol consumption? Occasional Less than 3 times per week Information not available 04/01/2022 What is your exercise level? Heavy Information not available 04/01/2022 Mental Status None recorded. Family History Relationship Description Onset Age of this Age Resolved Age Notes LastModified by Organization Details LastModified Time Father Osteoarthrit is [email or web address] Not available 2021 10:11:30 Mother Osteoarthrit is rtryba Not available 2021 10:11:30 Paternal Grandfather Malignant neoplasm of lung rtryba Not available 2021 10:12:07 [...] 50 mcg/0.25mL dose 12/09/2020 completed Xiomara mcdaniel [facility] 03/27/2022 08:22:38 COVID-19, mRNA, LNP-S, PF, 100 mcg/0.5mL dose or 50 mcg/0.25mL dose 01/19/2021 completed Xiomara mcdaniel [facility] 03/27/2022 08:22:46 COVID-19, mRNA, LNP-S, PF, 100 mcg/0.5mL dose or 50 mcg/0.25mL dose 10/23/2021 completed Xiomara mcdaniel, [facility] 03/27/2022 08:22:53 zoster, unspecified formulation 12/03/2019 completed Xiomaragianni Squires null, [facility] 03/27/2022 08:23:12 zoster, unspecified formulation 06/02/2020 completed Xiomara Squires null, [facility] 03/27/2022 08:23:21 MMR 09/26/2016 completed Xiomara mcdaniel, [facility] 03/27/2022 08:23:34 Td(adult) unspecified formulation 12/14/2013 completed Xiomara mcdaniel, [facility] 03/27/2022 08:23:48 Past Encounters Encounter ID Performer Location Encounter Start Date Encounter Closed Date Diagnosis/Indication Diagnosis SNOMED-CT Code Diagnosis ICD10 Code Diagnosis [facility] 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 excellent Eczema 79250671 L30.9 will trial steriod cream for itchy patches on her skin [id number] Antonio Haji [address],[place] [address] 05/19/2024 09:06:00 05/21/2024 09:17:38 Depression screening 433573202 Z13.31 negative Screening colonoscopy 44 8611827 Z12.11 agreed to referral Screening mammography 24 876609 Z12.31 will set up with screening MM [id number] Antonio Haji [facility] [address],[place] [address] 07/20/2024 15:05:17 07/20/2024 15:59:46 Active or passive immunization 988101052 Z23 advised Adult heal th examination 423431105 Z00.00 BP is excellent [id number] Antonio Haji DO [facility] [address] [facility],[place] [address] 02/01/2025 10:09:23 02/01/2025 14:30:44 Constipation 28778548 K59.01 will set up with linzesscan start this weekend Diverticul osis of colon 632513766 K57.30 stable at this time Health Concerns Section Related Observation LastModified by Organization Detai ls LastModified Time None Recorded Concern Status LastModified by Organization Details LastModified Time None Recorded Advance Directives Directive None Recorded Payers Insurance Date Sequence Insurance Name Policy Number Policy Tapia Covered Member ID Tapia Member ID Guarantor Name 01/29/2025 1 [employer]UE [employer] [facility] [id number] Karma Tobias [id number] Karma Collado Notes Date Note Type [...] physical questions and PE EDEN MANN [address] [place], [address], [facility] 03/29/2022 10:32:38 4 text/html f/u would like referral the patient reports she needs a colonoscopy, due every 5 years, [place] [address] [facility] set up with referral the patient is having a bowel movement everyday but like pellets, hardhas been using metamucil which has seemed to helped a little with feeling more emptyis also producing mucus-like discharge as wellhad a polyp as well at last check which prompted the 5 year plan will set up with [facility] could also be worsened by the anxiety as well given how stressed she is at workneed to r/o any concerning changes from her colon as well needs screening MM EDEN MANN [address] [place], [address], [facility] 05/19/2024 09:37:13 4 text/html Annual [...] appt was this past summer EDEN MANN [address] [place], [address], [facility] 07/20/2024 15:57:07 5 text/html f/u GI consult the patient reports she had her colonoscopyfound one polyp and diverticulosis, has to return for repeat colonoscopy in 5 yearshaving her continue on metamucil, the patient reports that she is still going frequently, does seem to be emptying her bowels completely the patient is overall doing wellwill add on a pro motility agent to help regulate her bowelspatient agrees, will start on low dose linzesscontinue metamucil EDEN MANN [address] [place], [address], [facility] 02/01/2025 10:52:55 OBGyn Episode No OBEpisode recorded.
--- OUTSIDE RECORDS SUMMARY | 2025-04-26 14:55 | XMS_ITS | Patient Health Record ---
Author Organization [facility] Address [address] [facility] [place] [address] Care Team Providers Care Scallop Cutter Name Role Phone Antonio Haji MD Primary Care Provider Jorden Ortega Unavailable [phone] Allergies Allergen (clinical drug ingredient) Drug/Non Drug Allergy documented on EMR Reaction Allergy Type Onset Date Status shrimp allergenic extract Shrimp (Diagnostic) hives Drug Allergy Active Reason For Referral No Information Medications Medication SIG (Take, Route, Frequency, Duration) Notes Start Date End Date Status Ibuprofen 800 MG 1 tablet with food o r milk as needed Orally Three times a day; Duration: 30 days PRN Active Multivitamins as directed Orally Not-Taking metroNIDAZOLE Not-Lico saba Work Note . . . pt is disabled f rom work until return on 08/21/16 07/29/2016 Not-Taking Alendronate Sodium N ot-Taking Desonide Not-Taking Gabapentin 300 MG 1 capsule Orally Onc e a day hs; Duration: 10 days Not-Taking oxyCODONE HCl Not-Lico saba Ibuprofen Prn Not-Taking Clotrimazole-Betamethason e 1-0.05 % 1 application to affected area Externally Twice a day to affected areas on feet; Duration: 30 days 05/03/2020 Not-Taki ng Work Note . . . patient may [...] Status Risk Notes Problem Pain in limb (98262618) Pain in unspecified toe(s) (M79.676) Active confirmed Problem Acquired hammer toe of left foot (8437182764867 103) Other hammer toe(s) (acquired), left foot (M20.42) Active confirmed Problem Arthritis of right ankle (8051758915865 106) Arthritis of right ankle (M19.071) Active confirmed [...] X ray : Foot, right 3V 09/30/2023 65613, J0702- INJECT or DRAIN, JOINT/BUR SA 10/07/2023 [id number], Toes 06/19/2020 [id number], Toes 05/24/2020 X ray : Ankle, right 3V 09/30/2023 Insurance Providers Payer Name Payer Address Payer Phone Subscriber Number Group Number Insured Name Patient Relationship to Insured Coverage Start Date Coverage End Date Blue Benefits [address] [address] [place] [address] [id number] Karma Collado Self - patient is the insured Medical (General) History Medical History History ICD Code mumps headaches/migraines back, hip, knee pain chicken pox Osteoporosis Broken bones Measles Chicken pox Psoriasis/eczema Surgical History Surgery Date(Month/Year) nose surgery 06/2015 Tucker R, dislocated sesamoid 06/27/16 bunion surgery HT L2nd, Dislocated L2nd MTPJ 04/27/2020 [place] History Reason [place] [facility] [place]/27[place]16
--- OUTSIDE RECORDS SUMMARY | 2025-04-26 14:55 | XMS_ITS | Clinical Summary ---
[facility] Address [address] [place] [address] Care Team Providers Care Fitter Helper Name Role Phone Antonio Haji DO Primary Care Provider [phone] Surgical History Surgery Date Site/Laterality Comments COLONOSCOPY [...] 2023-2 5 season) 2024 Influenza Vaccine (#1) 2025 RSV Immunization Adult Patie nts (1 - 1-dose 75+ series) 2032 HIB [...] age to complete this topic Meningococcal B Vaccine Aged Out No l onger eligible based on patient's age to complete this topic RSV Immunization Patients Un fátima 20 months Aged Out No longer eligible b ased on patient's age to complete this topic Varicella Vaccines Aged Out No longer eligible based on patient's age to complete this topic Care Teams Fitter Helper Relationship Specialty Start Date End Date Antonio Haji DO [address] [facility] [address] [place], [place] PCP - General Internal Medicine 09/13/21
== END 2025-04-26 14:19 | disposition home or self-care (01) ==
LOC: HO.HOS 13:47
PROVIDERS: PCP Internal Medicine; Visit Provider Orthopaedic Surgery
DX: M17.11 Unilateral primary osteoarthritis, right knee (principal)
CPT/HCPCS: 99213

== ENCOUNTER → 2025-04-26 13:48 | Outpatient (BNV) | payer OTHER, SELFPAY | PROVIDERS: Visit Provider Radiology Diagnostic Radiology | DX: M17.11 Unilateral primary osteoarthritis, right knee (principal) | CPT/HCPCS: 73562 ==

== ENCOUNTER 2025-05-19 09:42 | Outpatient (AMB) | payer OTHER, SELFPAY ==
--- NOTE | 2025-05-19 10:06 | A.OFFVIS_ITS ---
Vital Signs 05/19/25 10:07 Height 4 ft 11 in Weight 119 lb BMI 24.0 Intake Visit Reasons: Inj: Right knee Durolane inj Intake Note: Karma is a 69 year old female who presents today for a right knee Durolane gel injection. She describes her right knee pain as sharp in nature. She has failed the last 3 months of conservative treatment. She wishes to hold off on total knee replacement surgery for now. 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 Physical Exam Vital Signs: BMI result Body Mass Index 24.0 Const Other: Well-nourished well-developed very friendly female awake alert and oriented x3 in no acute distress Extrem Other: Right knee examination shows a minimal effusion, palpable crepitus with range of motion, pain with range of motion, no instability Office Procedures AMB Joint Injection/Aspiration Joint Injection/Aspiration Primary Site: right knee Prep: site was prepped using aseptic technique Injected: 60 mg of (Durolane viscosupplementation) and 1% plain lidocaine Procedure: The patient tolerated the procedure well Coding 31130 - Large joint Procedure code (CPT) selection complete Results Reviewed Results Reviewed: X-rays of the patient's right knee taken previously show joint space narrowing, subchondral sclerosis, no acute bony abnormalities Assessment & Plan Assessment & Plan (1) Primary osteoarthritis of right knee: Code(s): M17.11 - Unilateral primary osteoarthritis, right knee Category: Medical Plan Ms. Collado presents with right knee pain due to osteoarthritis. The risks and benefits of a right knee Durolane viscosupplementation injection were discussed at length with the patient. The patient wished to proceed. She tolerated the injection well. She will continue with her home exercise program. She will contact me prior to her follow-up appointment in 3 months should any questions or concerns arise. Feel free to call me at any time should questions regarding her orthopedic management arise. I spent 21 minutes in reviewing the patient's records and imaging studies, seeing the patient and documenting in the medical record. Orders: Orders AMB Joint Injection/Aspiration Today M17.11 - Unilateral primary osteoarthritis, right knee Coding Level of Care Code Est Pt Level 3 (98057) Complex EM visit Add On G2211 Diagnoses Primary osteoarthritis of right knee M17.11 CPT Codes Coding - 59867 Large joint: 85305 - Large joint ([id number])
[2025-05-19 10:07] VITALS: BMI 24.0
--- OUTSIDE RECORDS SUMMARY | 2025-05-19 10:20 | XMS_ITS | Clinical Summary ---
[facility] Address [address] [place] [address] Care Team Providers Care Semiconductor Assembler Name Role Phone Antonio Haji DO Primary Care Provider [phone] Surgical History Surgery Date Site/Laterality Comments COLONOSCOPY [...] Vaccine (1 - 2023-2 5 season) 2024 Depression Screening 10/27/2024 Influenza Vaccine (#1) 2025 RSV Immunization Adult [...] age to complete this topic Care Teams Semiconductor Assembler Relationship Specialty Start Date End Date Antonio Haji DO [address] [facility] [address] [place], [place] PCP - General Internal Medicine 09/13/21
--- OUTSIDE RECORDS SUMMARY | 2025-05-19 10:20 | XMS_ITS | Clinical Summary ---
Author Organization [facility] Address [address] [place] [address] Care Team Providers Care Acute Care Physical Therapist Name Role Phone Antonio Haji DO Primary Care Provider [phone] Allergies No known active allergies Medications No [...] 1 - PCV) 2022 Influenza Vaccine (#1) 2025 DTap / Tdap / Td (2 [...] age to complete this topic Care Teams Acute Care Physical Therapist Relationship Specialty Start Date End Date Antonio Haji DO [address] [place] [address] PCP - General Internal Medicine 09/13/21
--- OUTSIDE RECORDS SUMMARY | 2025-05-19 10:20 | XMS_ITS | Patient Health Record ---
Author Organization [facility] Address [address] [place] [place] [address] Care Team Providers Care Boiler Welder Name Role Phone Antonio Haji MD Primary Care Provider Jorden Ortega Unavailable [phone] Allergies Allergen (clinical drug ingredient) Drug/Non Drug [...] Status Risk Notes Problem Pain in limb (52510174) Pain in unspecified toe(s) (M79.676) Active confirmed Problem Other hammer toe(s) (acquired), left foot (M20.42) Active confirmed Problem Arthritis of right ankle (7048480465475 106) Arthritis of right ankle (M19.071) Active [...] X ray : Foot, right 3V 09/30/2023 34767, J0702- INJECT or DRAIN, JOINT/BUR SA 10/07/2023 [id number], Toes 06/19/2020 [id number], Toes 05/24/2020 X ray : Ankle, right 3V 09/30/2023 Insurance Providers Payer Name Payer Address Payer Phone Subscriber Number Group Number Insured Name Patient Relationship to Insured Coverage Start Date Coverage End Date Blue Benefits [address] [address] [place] [address] [id number] Karma Collado Self - patient is the insured Medical (General) History Medical History History ICD Code mumps headaches/migraines back, hip, knee pain chicken pox Osteoporosis Broken bones Measles Chicken pox Psoriasis/eczema Surgical History Surgery Date(Month/Year) nose surgery 06/2015 Tucker R, dislocated sesamoid 06/27/16 bunion surgery HT L2nd, Dislocated L2nd MTPJ 04/27/2020 Hospitalization History Reason Date(Month/[place] [facility] [place] 06/27/16
== END 2025-05-19 10:30 | disposition home or self-care (01) ==
LOC: HO.HOS 09:42
PROVIDERS: Visit Provider Orthopaedic Surgery
DX: M17.11 Unilateral primary osteoarthritis, right knee (principal)
CPT/HCPCS: 20610; 99213

== ENCOUNTER → 2025-05-19 09:42 | Outpatient (BNVA) | payer OTHER, SELFPAY | PROVIDERS: Visit Provider Orthopaedic Surgery | DX: M17.11 Unilateral primary osteoarthritis, right knee (principal) | CPT/HCPCS: 20610; J2003; J7318 ==

== ENCOUNTER 2025-08-23 09:39 | Outpatient (AMB) | payer OTHER, SELFPAY ==
--- NOTE | 2025-08-23 09:47 | MHC.OFFVIS ---
Vital Signs 08/23/25 09:51 Height 4 ft 11 in Weight 119 lb BMI 24.0 Intake Visit Reasons: Right knee pain Intake Note: Karma is a 69 year old female who presents with complaints of intermittent right knee pain. She describes her pain as sharp in nature. She did have a viscosupplementation injection given into her right knee earlier this year which seemed to aggravate her pain. She has had cortisone injections in the past which gave her minimal relief. She continues with her home exercise program. She wishes to hold off on right total knee replacement surgery for now. 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 Physical Exam Vital Signs: BMI result Body Mass Index 24.0 Const Other: Well-nourished well-developed very friendly female awake alert and oriented x3 in no acute distress Extrem Other: Right knee examination shows a minimal effusion, palpable crepitus with range of motion, pain with range of motion, no instability Results Reviewed Results Reviewed: X-rays of the patient's right knee taken previously show severe joint space narrowing, osteophyte formation, ahbx-lq-igaw arthritis with grade 4 degenerative changes, no acute bony abnormalities Assessment & Plan Assessment & Plan (1) Right knee pain: Code(s): M25.561 - Pain in right knee (2) Primary osteoarthritis of right knee: Code(s): M17.11 - Unilateral primary osteoarthritis, right knee Category: Medical Plan Ms. Collado presents with right knee pain due to end-stage degenerative joint disease. I had a lengthy discussion with the patient regarding the treatment options. At this point the patient's symptoms are tolerable to her. She wishes to hold off on total knee replacement surgery for as long as possible. I agree with this plan. She will continue with her activity modifications. She will follow up with me on an as-needed basis should her symptoms worsen in any way. Feel free to call me at any time should questions regarding her orthopedic management arise. I spent 22 minutes in reviewing the patient's records and imaging studies, seeing the patient and documenting in the medical record. Coding Level of Care Code Est Pt Level 3 (25164) Complex EM visit Add On G2211 Diagnoses Right knee pain M25.561 Primary osteoarthritis of right knee M17.11
[2025-08-23 09:51] VITALS: BMI 24.0
--- OUTSIDE RECORDS SUMMARY | 2025-08-23 11:09 | XMS_ITS | Clinical Summary ---
Author Organization [facility] Address [address] [place] [address] Care Team Providers Care Creative Designer Name Role Phone Antonio Haji DO Primary Care Provider [phone] Allergies No known active allergies Medications No [...] age to complete this topic Care Teams Creative Designer Relationship Specialty Start Date End Date Antonio Haji DO [address] [place] [address] PCP - General Internal Medicine 09/13/21
--- OUTSIDE RECORDS SUMMARY | 2025-08-23 11:09 | XMS_ITS | Data Portability ---
Author Organization [facility] Patient Home Address [address] [place] [address] Assessment No assessment recorded. Plan of Treatment Reminders Order Date Submit Date Provider Last Modified By Organization Details Last Modified Time Details Appointments ANNUA L EXAM 2025 01:30P EDEN ANGULO Not available Not available Not available Lab CBC w/ auto diff 2023 024 [facility], [address] [place] [address], [id number], 07/20/2024 15:46:16 CMP, serum or plasm a 2023 024 [facility], [address] [place] [address], [address], 07/20/2024 15:46:16 lipid panel , blood 2023 024 [facility], [address] [place] [address], [address], 07/20/2024 15:46:16 CMP, serum or plasm a 2021 022 [facility], [address] [place] [address], [address], 03/29/2022 10:30:44 CBC w/ auto diff 2021 022 [facility], [address] [place] [address], [id number], 03/29/2022 10:30:44 lipid panel , blood 2021 022 [facility], [address] [facility], [place], [address], 03/29/2022 10:30:43 Referral gastr london stewart ist refer ral - has been seen previ ously with Dr. Luis Alfredo lama 2023 024 [email or web address] [facility], [address] [place] [address] Dr, [facility], MICHAEL [place], [address], 05/21/2024 09:17:39 Procedures None recor ded. Surgeries None recor ded. Imaging MAMMO , scree raj, digit al, bilat eral 2023 024 [facility] [place], [address] [place], [address], 06/02/2024 08:19:33 Medication Orders linac lotid e 72 mcg capsu le 2024 025 [id number], [address] [place], [place], [phone], 07/25/2025 10:50:37 triam cinol one aceto nide 0.1 % topic al cream [id number] [place] [address] [id number], [address], [place], [phone], 07/25/2025 10:50:14 Patient TargetsNo targets recorded. Patient InstructionsNo instructions recorded. 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 Molina Referring Physician: Paola Parikh, Internal Medicine, Encounter Date: 05/19/2024 Results Created Date Observation Date Name Description Value Unit Range Abnormal Flag Note LastModifiedBy Organization Detail LastModifiedTime 10/01/20 22 09/26/2022 bone densi ty No observ ation record ed. [facility] [employer] [facility] [place] [address], [place], [address], 10/01/2022 14:28:38 06/11/20 24 06/09/2024 MAMMO , scree raj, digit al, bilat eral No observ ation record ed. [facility] [address] [place], [address], 07/20/2024 15:35:40 Result Notes None recorded. Problems Name Problem SNOMED Code Status Onset Date Resolution Date Notes Provider Name and Address Organization Details Recorded Time Eczema 54554674 Active 2021 EDEN MANN [address] [place] [address], [address], [facility] 2 10:18:30 Constipati on 13058318 Active 2024 EDEN MANN [address] [place] [address], [address], [facility] 5 10:40:24 Diverticul osis of colon 810246608 Active 2024 EDEN MANN [address] [place] [address], [address], [facility] 5 10:52:22 Slow transit constipati on 79198308 Active 2024 EDEN MANN [address] [place] [address], [address], [facility] 5 11:14:34 Problem Notes None recorded. Procedures Surgical History Date Name Laterality Status Provider Name and Address Organization Details Recorded Time 10/30/19 21 Date of Last Pap Smear completed Xiomara Squires [facility] 04/01/2022 11:50:28 10/30/19 21 Most Recent Mammogram completed Xiomara Squires [facility] 04/01/2022 11:51:08 excision of bunion completed EDEN MANN [address] [place] [address], [address], [facility] 03/29/2022 10:14:03 Imaging Results None recorded. Procedure Notes None recorded. Medical Equipment None Reported. Allergies Allergen ID Allergen Name Allergen Category Reaction Reaction Severity Criticality Documentation Date Start Date Code Code System Note Provider Name and Address Organization Details Recorded Time 5766 shrimp allergeni c extract food hives moderate Not available 03/29/2022 74122 2 RxNorm Xiomara mcdaniel [facility] 2 09:50:20 Medications Name Sig Start Date Stop Date Status Note LastModified by Organization Details LastModified Time triamcinolo ne acetonide 0.1 % topical cream APPLY A THIN LAYER TO THE AFFECTED AREA(S) BY TOPICAL ROUTE 2 TIMES PER DAY 07/25 completed Not Available Not Available Not Available Fish Oil TAKE ONE TABLET A DAY active Not Available Not Available No t Available linaclotide 72 mcg capsule Take 1 capsule every day by oral route as directed for 30 days. 07/25 completed Not Available Not Available Not Available Vitals Date Recorded Body height Body mass index (BMI) Body weight Provider Name and Address Organization Details Last Updated DateTime 02/01/2025 149.86 cm 24.3 kg/m2 75117.88 g Doris Ruddy [facility] 02/01/2025 10:22:55 Date Recorded Body weight Body mass index (BMI) Body height Oxygen saturation Oxygen saturation in Arterial blood by Pulse oximetry Heart rate Systolic And Diastolic Provider Name and Address Organization Details Last Updated DateTime 2 98049.9 2 g 23.3 kg/m2 149.86 cm 99 % 99 % 62 /min 118/70 mm[Hg] Xiomara Squires [facility] 2 09:51:55 Date Recorded Body height Body mass index (BMI) Body weight Heart rate Oxygen saturation Oxygen saturation in Arterial blood by Pulse oximetry Systolic And Diastolic Provider Name and Address Organization Details Last Updated DateTime 4 149.86 cm 24.2 kg/m2 48048.7 3 g 70 /min 98 % 98 % 118/70 mm[Hg] Jose Orlando [facility] 4 09:13:41 Date Recorded Body height Body mass index (BMI) Body weight Heart rate Oxygen saturation Oxygen saturation in Arterial blood by Pulse oximetry Systolic And Diastolic Provider Name and Address Organization Details Last Updated DateTime 4 149.86 cm 23.9 kg/m2 31556.7 g 67 /min 98 % 98 % 114/74 mm[Hg] Doris Fox [facility] 4 15:23:34 Date Recorded Body height Body mass index (BMI) Body weight Heart rate Oxygen saturation Oxygen saturation in Arterial blood by Pulse oximetry Systolic And Diastolic Provider Name and Address Organization Details Last Updated DateTime 5 149.86 cm 24.2 kg/m2 96124.0 8 g 59 /min 97 % 97 % 130/80 mm[Hg] Flakita Engmond [facility] 5 10:51:07 Social History Question Answer Notes LastModified by Buz Details LastModified Time Tobacco Smoking Status [facility] 03/29/2022 09:47:11 What Is Your Level Of Caffeine Consumption? Moderate 2 Cups Per Day Information not available 04/01/2022 What Was The Date Of Your Most Recent Tobacco Screening? 07/25/2025 Information not available 07/25/2025 Sex: Unknown Functional Status Question Answer Note LastModified by Buz Details LastModified Time Do you use any [...] Immunizations Vaccine Type Date Status Note Provider Kelvin bustos and Address Organization Details Recorded Time COVID-19, mRNA, LNP-S, PF, 100 mcg/0.5mL dose or 50 mcg/0.25mL dose 12/09/2020 completed Xiomara mcdaniel [facility] 03/27/2022 08:22:38 COVID-19, mRNA, LNP-S, PF, 100 mcg/0.5mL dose or 50 mcg/0.25mL dose 01/19/2021 completed Xiomara mcdaniel [facility] 03/27/2022 08:22:46 COVID-19, mRNA, LNP-S, PF, 100 mcg/0.5mL dose or 50 mcg/0.25mL dose 10/23/2021 completed Xiomara mcdaniel [facility] 03/27/2022 08:22:53 zoster, unspecified formulation 12/03/2019 completed Xiomara mcdaniel [facility] 03/27/2022 08:23:12 zoster, unspecified formulation 06/02/2020 completed Xiomara mcdaniel [facility] 03/27/2022 08:23:21 MMR 09/26/2016 completed Xiomara mcdaniel [facility] 03/27/2022 08:23:34 Td(adult) unspecified formulation 12/14/2013 completed Xiomara mcdaniel [facility] 03/27/2022 08:23:48 Past Encounters Encounter ID Performer Location Encounter Start Date Encounter Closed Date Diagnosis/Indication Diagnosis SNOMED-CT Code Diagnosis ICD10 Code Diagnosis IMO Codes Diagnosis Note [id number] DO [facility] [address] [facility],[place] [address] 03/29/2022 09:34:21 03/29/2022 16:23:15 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 983017047 Z00.00 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 P is excellent Eczema 65636807 L30.9 will trial steriod cream for itchy patches on her skin [id number] DO [facility] [address],[place] [facility] [place] [address] 05/19/2024 09:06:00 05/21/2024 09:17:38 Depression screening 446606417 Z13.31 negative Screening colonoscopy 44 4699070 Z12.11 agreed to referral Screening mammography 24 325375 Z12.31 will set up with screening MM [id number] Antonio Haji [facility] [address],[place] [address] 07/20/2024 15:05:17 07/20/2024 15:59:46 Active or passive immunization 462000548 Z23 advised Adult heal th examination 759776721 Z00.00 BP is excellent [id number] Antonio Haji [facility] [address],[place] [address] 02/01/2025 10:09:23 02/01/2025 14:30:44 Constipation 11469665 K59.01 will set up with linzesscan start this weekend Diverticul osis of colon 565580913 K57.30 stable at this time [id number] Antonio Haji [facility] [address] [facility],[place] [address] 07/25/2025 10:17:20 07/27/2025 13:31:21 Depression screening 606214375 Z13.31 negative General ex amination of patient 717319544 Z00.00 676546 BP is excellent Slow trans it constipation 60288790 K59.01 8838 did not cover linzessif she wants she will call and order one of the alt formulary preferred Health Concerns Section Related Observation LastModified by Organization Detai ls LastModified Time None Recorded Concern Status LastModified by Organization Details LastModified Time None Recorded Advance Directives Directive None Recorded Payers Insurance Date Sequence Insurance Name Policy Number Policy Tapia Covered Member ID Tapia Member ID Guarantor Name 07/27/2025 1 [employer] [id number] [id number] Karma Collado [id number] Karma Collado Notes Date Note Type Note Provider Name a nd Address Organization Details Recorded Time 2 text/html Annual WellnessReported by PatientSocial/Behavio ral HistoryFor diet and nutrition, patient reportshealthy diet. For fracture risk, patient reportsno history of fractures,no recent explained fracture,no sudden unexplained fractures, andno previous musculoskeletal injuries. For physical activity, patient reportsexercises on a regular basis,recent increase in physical activity, andgood physical condition. For additional lifestyle factors, patient reportsno tobacco use,no alcohol intake, andstopped drinking alcohol.Mental Status:For depression risk, patient reportsnever feels sad, empty, or tearful,no loss of interest in activities,no significant changes in weight,no sleep disturbances or insomnia,no agitation,no loss of energy,no feelings of worthlessness or guilt,no thoughts of suicide,no history of depression, andno history of mood disorders.Functional AbilityFor hearing, patient reportsno loss of hearing. For vision, patient reportsno vision problems. NPV allergies: moderate shrimp allergy problems: no current medical historyother hx documented in the chartdiscussed previous surgical hx vaccines: up to date vitals: excellent history: updated in the chart rest of the visit was used for routine physical questions and PE EDEN MANN [address] [place], [address], [facility] 03/29/2022 10:32:38 4 text/html ROS as noted in the HPI f/u would like referral the patient reports she needs a colonoscopy, due every 5 years, [place] [address] [facility] [place]essa set up with referral the patient [...] well needs screening MM EDEN MANN [address] [place], [address], [facility] 05/19/2024 09:37:13 4 text/html Annual WellnessReported by PatientSocial/Behavio ral HistoryFor diet and nutrition, patient reportshealthy diet,discussed vitamin and supplement use,discussed portion control,discussed maintaining calcium balance, anddiscussed diet improvement. For fracture risk, patient reportsno history of fractures,no recent explained fracture,no sudden unexplained fractures, andno previous musculoskeletal injuries. For physical activity, patient reportsexercises on a regular basis,recent increase in physical activity, andgood physical condition. For additional lifestyle factors, patient reportsno tobacco useanddrinks alcohol (mild-moderate).Menta l Status:For depression risk, patient reportsnever feels sad, empty, or tearful,no loss of interest in activities,no significant changes in weight,no sleep disturbances or insomnia,no agitation,no loss of energy,no feelings of worthlessness or guilt,no thoughts of suicide,no history of depression, andno history of mood disorders.Functional AbilityFor hearing, patient reportsno loss of hearing. For vision, patient reportsno vision problems.last dentist appt was this past summerROS as noted in the HPI EDEN MANN [address] [place], [address], [facility] 07/20/2024 15:57:07 5 text/html ROS as noted in the HPI f/u GI consult the patient reports she [...] low dose linzesscontinue metamucil EDEN MANN [address] [place], [address], [facility] 02/01/2025 10:52:55 5 text/html Annual WellnessReported by PatientSocial/Behavio ral HistoryFor diet and nutrition, patient reportshealthy diet,discussed vitamin and supplement use,discussed portion control,discussed maintaining calcium balance, anddiscussed diet improvement. For fracture risk, patient reportsno history of fractures,no recent explained fracture,no sudden unexplained fractures, andno previous musculoskeletal injuries. For physical activity, patient reportsexercises on a regular basis,recent increase in physical activity,good physical condition,discussed weightbearing activities, anddiscussed exercise habits. For additional lifestyle factors, patient reportsno tobacco useanddrinks alcohol (mild-moderate).Menta l Status:For depression risk, patient reportsnever feels sad, empty, or tearful,no loss of interest in activities,no significant changes in weight,no sleep disturbances or insomnia,no agitation,no loss of energy,no feelings of worthlessness or guilt,no thoughts of suicide,no history of depression, andno history of mood disorders.Functional AbilityFor hearing, patient reportsno loss of hearing. For vision, patient reportsno vision problems.ROS as noted in the HPI EDEN MANN [address] [facility], [place], [address], [facility] 07/25/2025 11:27:11 OBGyn Episode No OBEpisode recorded.
--- OUTSIDE RECORDS SUMMARY | 2025-08-23 11:09 | XMS_ITS | Patient Health Record ---
Author Organization [facility] Address [address] [place] [address] Care Team Providers Care Import Specialist Name Role Phone Antonio Haji MD Primary Care Provider Jorden Bashir Unavailable [phone] Allergies Allergen (clinical drug ingredient) Drug/Non Drug [...] Status Risk Notes Problem Pain in limb (03274065) Pain in unspecified toe(s) (M79.676) Active confirmed Problem Acquired hammer toe of left foot (3025216838815 103) Other hammer toe(s) (acquired), left foot (M20.42) Active confirmed Problem Arthritis of right ankle (3015844746270 106) Arthritis of right ankle (M19.071) Active [...] X ray : Foot, right 3V 09/30/2023 12268, J0702- INJECT or DRAIN, JOINT/BUR SA 10/07/2023 [id number], Toes 06/19/2020 [id number], Toes 05/24/2020 X ray : Ankle, right 3V 09/30/2023 Insurance Providers Payer Name Payer Address Payer Phone Subscriber Number Group Number Insured Name Patient Relationship to Insured Coverage Start Date Coverage End Date Blue Benefits [address] [address] [place] [address] [phone] [id number] Karma Collado Self - patient is the insured Medical (General) History Medical History History ICD Code mumps headaches/migraines back, hip, knee pain chicken pox Osteoporosis Broken bones Measles Chicken pox Psoriasis/eczema Surgical History Surgery Date(Month/Year) nose surgery 06/2015 Tucker R, dislocated sesamoid 06/27/16 bunion surgery HT L2nd, Dislocated L2nd MTPJ 04/27/2020 Hospitalization History Reason Date(Month/Year) [facility] [place] Bunion right foot 06/27/16
== END 2025-08-23 10:08 | disposition home or self-care (01) ==
LOC: HO.HOS 09:39
PROVIDERS: Visit Provider Orthopaedic Surgery
DX: M25.561 Pain in right knee (principal); M17.11 Unilateral primary osteoarthritis, right knee
CPT/HCPCS: 99213

== ENCOUNTER 2025-09-02 13:10 | Outpatient (REF) | payer OTHER, SELFPAY ==
--- NOTE | ~2025-09-02 | MM_ITS ---
EXAMINATION: DXA BONE DENSITY AXIAL HISTORY: OSTEOPOROSIS TECHNIQUE: AMEE Dual energy absorptiometry (DEXA) of the lumbar spine, total left hip, and femoral neck was performed. COMPARISON: Comparison is made with the prior examination dated 09/26/2022. FINDINGS: The bone mineral density of the lumbar spine is 0.780 g/cm2, corresponding to a T-score of -3.3, and a Z-score of -1.2. This is indicative of osteoporosis. This represents a BMD change of -4.4% compared to the prior exam. This is statistically significant. The bone mineral density of the left total hip is 0.909 g/cm2, corresponding to a T-score of -0.8, and a Z-score of 0.9. This is indicative of normal bone mineral density. This represents a BMD change of -2.2% compared to the prior exam. This is not statistically significant. The bone mineral density of the left femoral neck is 0.876 g/cm2, corresponding to a T-score of -1.2, and a Z-score of 0.7. This is indicative of osteopenia. This represents a BMD change of -1.0% compared to the prior exam. FRACTURE RISK: The FRAX index suggests a ten year probability of major osteoporotic fracture of 8.2%, and of hip fracture 0.8%. MM/XR DEXA axial skeleton IMPRESSION: Based on bone mineral density, and according to World Health Organization (WHO) criteria, the diagnosis is consistent with osteoporosis. Statistically, 68% of repeat scans fall within 1 SD (+/- 0.010 g/cm2 for AP spine L1-L4) and 1 SD (+/- 0.012 g/cm2 for femur total) FRAX is a trademark of the [employer]'s [place] [employer] Metabolic [employer] Disease, a World Health Organization (WHO) Collaborating Center. Electronically signed by: Ritesh Fisher MD 09/02/2025 02:41 PM [facility]
--- NOTE | ~2025-09-02 | MM_ITS ---
EXAMINATION: MM SCREENING DIGITAL BREAST TOMOSYNTHESIS, BILATERAL CLINICAL INFORMATION: Screening. Asymptomatic. COMPARISON: Mammography: Comparison is made with available priors TECHNIQUE: Digital breast mammography with tomosynthesis is performed in both the craniocaudal and mediolateral oblique views along with computer-aided detection (CAD). FINDINGS: The breasts are extremely dense, which lowers the sensitivity of mammography. There are no significant masses, abnormal calcifications, or other abnormalities. MM/MM tomosynthesis screening BI IMPRESSION: No mammographic evidence of malignancy. ASSESSMENT: BI-RADS Category 1: Negative RECOMMENDATION: Routine annual mammography screening. 1 year F/U This examination should not preclude the clinical evaluation of a suspicious palpable abnormality. This patient's information was entered into a reminder system with a target due date for their next mammogram. Electronically signed by: Leeanna Calderon DO 09/06/2025 05:48 PM [facility]
--- OUTSIDE RECORDS SUMMARY | 2025-09-02 15:21 | XMS_ITS | Patient Health Record ---
Author Organization [facility] Address [address] [place] [address] Care Team Providers Care Manager Business Continuity Name Role Phone Antonio Haji MD Primary Care Provider Jorden Bashir Unavailable [phone] Allergies Allergen (clinical drug ingredient) Drug/Non Drug [...] Multivitamins as directed Orally Not-Taking metroNIDAZOLE Not-Lico wandy Work Note . . . pt [...] Status Risk Notes Problem Pain in limb (96780348) Pain in unspecified toe(s) (M79.676) Active confirmed Problem Acquired hammer toe of left foot (7144211823572 103) Other hammer toe(s) (acquired), left foot (M20.42) Active confirmed Problem Arthritis of right ankle (4254487991397 106) Arthritis of right ankle (M19.071) Active confirmed Plan Of Treatment Pending Test Test Name Order Date X ray : Foot, right 2V 01/04/2013 X ray : Foot, right 2V 07/02/2016 X ray : Foot, right 2V 07/29/2016 X ray : Foot, right 2V 09/09/2016 X ray : Foot, right 2V 12/25/2015 X ray : Foot, left 3V 06/19/2020 X ray : Foot, left 3V 07/20/2020 X ray : Foot, left 3V 11/16/2020 X ray : Foot, left 3V 11/28/2021 X ray : Foot, left 3V 12/29/2019 X ray : Foot, left 3V 05/03/2020 X ray : Foot, left 3V 05/17/2020 X ray : Foot, right 3V 09/30/2023 91562, J0702- INJECT or DRAIN, JOINT/BUR SA 10/07/2023 [id number], Toes 06/19/2020 [id number]-Xkburgnoy, Toes 05/24/2020 X ray : Ankle, right 3V 09/30/2023 Insurance Providers Payer Name Payer Address Payer Phone Subscriber Number Group Number Insured Name Patient Relationship to Insured Coverage Start Date Coverage End Date Blue Benefits [address] [address] [place] [address] [id number] Karma Collado Self - patient is the insured Medical (General) History Medical History History ICD Code mumps headaches/migraines back, hip, knee pain chicken pox Osteoporosis Broken bones Measles Chicken pox Psoriasis/eczema Surgical History Surgery Date(Month/Year) nose surgery 06/2015 Tucker R, dislocated sesamoid 06/27/16 bunion surgery HT L2nd, Dislocated L2nd MTPJ 04/27/2020 Hospitalization History Reason Date(Month/Year) [facility] Bunion right foot 06/27/16
--- OUTSIDE RECORDS SUMMARY | 2025-09-02 15:21 | XMS_ITS | Clinical Summary ---
Author Organization [facility] Address [address] [place] [address] Care Team Providers Care Director Of Strategic Partnerships Name Role Phone Antonio Haji DO Primary Care Provider [phone] Allergies No known active allergies Medications No [...] age to complete this topic Care Teams Director Of Strategic Partnerships Relationship Specialty Start Date End Date Antonio Haji DO [address] [place] [address] PCP - General Internal Medicine 09/13/21
--- OUTSIDE RECORDS SUMMARY | 2025-09-02 15:21 | XMS_ITS | Data Portability ---
Author Organization [facility] Patient Home Address [address] [place] [address] Assessment No assessment recorded. Plan of Treatment Reminders Order Date Submit Date Provider Last Modified By Organization Details Last Modified Time Details Appointments ANNUA L EXAM 2025 01:30P EDEN ANGULO Not available Not available Not available Lab CBC w/ auto diff 2023 024 [facility], [address] [place] [address], [id number], 07/20/2024 15:46:16 CMP, serum or plasm a 2023 024 [facility], [address] [place] [address], [id number], 07/20/2024 15:46:16 lipid panel , blood 2023 024 [facility], [address] [place] [address], [address], 07/20/2024 15:46:16 CMP, serum or plasm a 2021 022 [facility], [address] [place] [address], [address], 03/29/2022 10:30:44 CBC w/ auto diff 2021 022 [facility], [address] [place] [address], [address], 03/29/2022 10:30:44 lipid panel , blood 2021 022 [facility], [address] [facility], [place], [address], 03/29/2022 10:30:43 Referral gastr london stewart ist refer ral - has been seen previ ously with Dr. Luis Alfredo lama 2023 024 [email or web address] [facility], [address] [place] [address] Dr, [facility], [place], [address], 05/21/2024 09:17:39 Procedures None recor ded. Surgeries None recor ded. Imaging MAMMO , scree raj, digit al, bilat eral 2023 024 [facility] [place], [address] [place], [address], 06/02/2024 08:19:33 Medication Orders linac lotid e 72 mcg capsu le 2024 025 [id number], [address] [place], [place], [phone], 07/25/2025 10:50:37 triam cinol one aceto nide 0.1 % topic al cream [email or web address] [place] [address] [id number], [address] [place], [place], [phone], 07/25/2025 10:50:14 Patient TargetsNo targets recorded. Patient InstructionsNo instructions recorded. 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 Molina Referring Physician: Paola Parikh, Internal Medicine, Encounter Date: 05/19/2024 Results Created Date Observation Date Name Description Value Unit Range Abnormal Flag Note LastModifiedBy Organization Detail LastModifiedTime 10/01/20 22 09/26/2022 bone densi ty No observ ation record ed. florian [facility] [employer] - [address], [place], [address], 10/01/2022 14:28:38 06/11/20 24 06/09/2024 MAMMO , scree raj, digit al, bilat eral No observ ation record ed. [email or web address] [address] [place], [address], 07/20/2024 15:35:40 09/02/20 25 09/02/2025 imagi ng/di agnos tic resul t No observ ation record ed. [address] [place], [address], 09/02/2025 14:45:34 Result Notes None recorded. Problems Name Problem SNOMED Code Status Onset Date Resolution Date Notes Provider Name and Address Organization Details Recorded Time Eczema 69745228 Active 2021 EDEN MANN [address] [place] [address], [address], [facility] 2 10:18:30 Constipati on 19714924 Active 2024 EDEN MANN [address] [place] [address], [address], [facility] 5 10:40:24 Diverticul osis of colon 147378815 Active 2024 EDEN MANN [address] [place] [address], [address], [facility] 5 10:52:22 Slow transit constipati on 43870010 Active 2024 EDEN MANN [address] [place] [address], [address], [facility] 5 11:14:34 Problem Notes None recorded. Procedures Surgical History Date Name Laterality Status Provider Name and Address Organization Details Recorded Time 10/30/19 21 Date of Last Pap Smear completed Xiomara Squires [facility] 04/01/2022 11:50:28 10/30/19 21 Most Recent Mammogram completed Xiomara Squires [facility] 04/01/2022 11:51:08 excision of bunion completed EDEN MNAN [address] [place], [address], [facility] 03/29/2022 10:14:03 Imaging Results None recorded. Procedure Notes None recorded. Medical Equipment None Reported. Allergies Allergen ID Allergen Name Allergen Category Reaction Reaction Severity Criticality Documentation Date Start Date Code Code System Note Provider Name and Address Organization Details Recorded Time 5766 shrimp allergeni c extract food hives moderate Not available 03/29/2022 64034 2 RxNorm Xiomara mcdaniel [facility] 09:50:20 Medications Name Sig Start Date [...] Updated DateTime 02/01/2025 149.86 cm 24.3 kg/m2 07389.88 g Doris Ruddy [facility] 02/01/2025 10:22:55 Date Recorded Body weight Body mass index (BMI) Body height Oxygen saturation Oxygen saturation in Arterial blood by Pulse oximetry Heart rate Systolic And Diastolic Provider Name and Address Organization Details Last Updated DateTime 14559.9 2 g 23.3 kg/m2 149.86 cm 99 % 99 % 62 /min 118/70 mm[Hg] Xiomara Squires [facility] 09:51:55 Date Recorded Body height Body mass index (BMI) Body weight Heart rate Oxygen saturation Oxygen saturation in Arterial blood by Pulse oximetry Systolic And Diastolic Provider Name and Address Organization Details Last Updated DateTime 4 149.86 cm 24.2 kg/m2 20140.7 3 g 70 /min 98 % 98 % 118/70 mm[Hg] Jose Orlando [facility] 4 09:13:41 Date Recorded Body height Body mass index (BMI) Body weight Heart rate Oxygen saturation Oxygen saturation in Arterial blood by Pulse oximetry Systolic And Diastolic Provider Name and Address Organization Details Last Updated DateTime 4 149.86 cm 23.9 kg/m2 32207.7 g 67 /min 98 % 98 % 114/74 mm[Hg] Doris Fox [facility] 4 15:23:34 Date Recorded Body height Body mass index (BMI) Body weight Heart rate Oxygen saturation Oxygen saturation in Arterial blood by Pulse oximetry Systolic And Diastolic Provider Name and Address Organization Details Last Updated DateTime 5 149.86 cm 24.2 kg/m2 95102.0 8 g 59 /min 97 % 97 % 130/80 mm[Hg] Flakita Montes [facility] 5 10:51:07 Social History Question Answer Notes LastModified by Tongda Details LastModified Time Tobacco Smoking Status Never [facility] 03/29/2022 09:47:11 What Is Your Level Of Caffeine Consumption? Moderate 2 Cups Per Day Information not available 04/01/2022 What Was The Date Of Your Most Recent Tobacco Screening? 07/25/2025 [email or web address] Information not available 07/25/2025 Sex: Unknown Functional Status Question Answer Note LastModified by [employer] Details LastModified Time Do you use any [...] 50 mcg/0.25mL dose 12/09/2020 completed Xiomara mcdaniel [facility] 03/27/2022 08:22:38 COVID-19, mRNA, LNP-S, PF, 100 mcg/0.5mL dose or 50 mcg/0.25mL dose 01/19/2021 completed Xiomara mcdaniel [facility] 03/27/2022 08:22:46 COVID-19, mRNA, LNP-S, PF, 100 mcg/0.5mL dose or 50 mcg/0.25mL dose 10/23/2021 leandra mcdaniel [facility] 03/27/2022 08:22:53 zoster, unspecified formulation 12/03/2019 leandra mcdaniel [facility] 03/27/2022 08:23:12 zoster, unspecified formulation 06/02/2020 leandra mcdaniel [facility] 03/27/2022 08:23:21 MMR 09/26/2016 leandra mcdaniel [facility] 03/27/2022 08:23:34 Td(adult) unspecified formulation 12/14/2013 leandra mcdaniel [facility] 03/27/2022 08:23:48 Past Encounters Encounter ID Performer Location Encounter Start Date Encounter Closed Date Diagnosis/Indication Diagnosis SNOMED-CT Code Diagnosis ICD10 Code Diagnosis IMO Codes Diagnosis Note [id number] Antonio Haji [facility] [address] [facility],[place] [address] 03/29/2022 09:34:21 03/29/2022 16:23:15 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 excellent Eczema 16435398 L30.9 will trial steriod cream for itchy patches on her skin [id number] Antonio Haji [facility] [address] [facility],[place] [address] 05/19/2024 09:06:00 05/21/2024 09:17:38 Depression screening 908779925 Z13.31 negative Screening colonoscopy 44 2521217 Z12.11 agreed to referral Screening mammography 24 642976 Z12.31 will set up with screening MM [id number] Antonio Haji [facility] [address] [facility] [address] [place] [address] 07/20/2024 15:05:17 07/20/2024 15:59:46 Active or passive immunization 505275782 Z23 advised Adult heal th examination 499364862 Z00.00 BP is excellent [id number] Antonio Haji [facility] [address] [facility] [address] 02/01/2025 10:09:23 02/01/2025 14:30:44 Constipation 30332247 K59.01 will set up with linzesscan start this weekend Diverticul osis of colon 741911751 K57.30 stable at this time [id number] Antonio Haji [facility] [address] [facility], [place] [address] 07/25/2025 10:17:20 07/27/2025 13:31:21 Depression screening 523592796 Z13.31 negative General ex amination of patient 159707944 Z00.00 309654 BP is excellent Slow trans it constipation 67676386 K59.01 8838 did not cover linzessif she [...] Name 07/27/2025 1 [employer] [facility] [id number] Karma Collado [id number] 99 Karma Collado Notes Date Note Type [...] routine physical questions and PE EDEN MANN [address] [place] [address], [address], [facility] 03/29/2022 10:32:38 4 text/html ROS as noted in the HPI f/u would like referral the patient reports she needs a colonoscopy, due every 5 years, last one was done in 2012 with [facility] Vanessa set up with referral the patient is having a bowel movement everyday but like pellets, hardhas been using metamucil which has seemed to helped a little with feeling more emptyis also producing mucus-like discharge as wellhad a polyp as well at last check which prompted the 5 year plan will set up with [facility] could also be worsened by the anxiety as well given how stressed she is at workneed to r/o any concerning changes from her colon as well needs screening MM EDEN MANN [address] [place], [address], [facility] 05/19/2024 09:37:13 4 text/html [...] noted in the HPI EDEN MANN [address] [place], [address], [facility] 07/20/2024 15:57:07 5 text/html ROS as noted [...] low dose linzesscontinue metamucil EDEN MANN [address] [place], [address], [facility] 02/01/2025 10:52:55 5 text/html [...] noted in the HPI EDEN MANN [address] [place], [address], [facility] 07/25/2025 11:27:11 OBGyn Episode No OBEpisode recorded.
== END 2025-09-02 13:11 | disposition home or self-care (01) ==
LOC: HO.MAMMO 13:10
PROVIDERS: PCP Internal Medicine; Visit Provider Internal Medicine
DX: Z12.31 Encounter for screening mammogram for malignant neoplasm of breast (principal); M81.0 Age-related osteoporosis without current pathological fracture
CPT/HCPCS: 77063; 77067; 77080

== ENCOUNTER → 2025-09-02 13:30 | Outpatient (BNV) | payer OTHER, SELFPAY | PROVIDERS: PCP Internal Medicine; Visit Provider Radiology Diagnostic Radiology | DX: E28.39 Other primary ovarian failure (principal) | CPT/HCPCS: 77080 ==